=== PATIENT | female | born 1990 | race Caucasian/White ===

== ENCOUNTER 2016-11-14 16:49 | Emergency (ER) | payer OTHER ==
[~2016-11-14] VITALS: Ht 172.7 cm; Wt 65.7 kg
[~2016-11-14 16:49] MED LIST: ASPI-390 PO; RIZA10TA18 PO; SUMA100T16 PO
[2016-11-14 16:53] VITALS: Ht 172.7 cm; Wt 65.7 kg
[2016-11-14] MEDS ORDERED: METOCLOPRAMIDE HCL INJ 5 MG/ML 2 ML VIAL IV STA (18:11)
[2016-11-14] MEDS ORDERED: SODIUM CHLORIDE 0.9% 1000ML 1,000 ML IV STA ×2 (18:11)
[2016-11-14] MEDS ORDERED: DiphenhydrAMINE HCL 50 MG/ML VIAL IV STA (18:11)
[2016-11-14] MEDS ORDERED: NAPR-1169 PO (18:11)
[2016-11-14] MEDS ORDERED: MAGNESIUM SULFATE 1GM / D5W 1 GM BAG IV STA (18:11)
[2016-11-14] MEDS ORDERED: KETOROLAC TROMETHAMINE 30 MG/ML VIAL IV STA (18:11)
--- NOTE | 2016-11-14 18:22 | EMERGENCY ROOM VISIT NOTE ---
History Report prepared by Chris: Juan Mason Under the Supervision of: Dr. Acosta Xiao M.D. First contact with patient: 17:54 Chief Complaint: GI ASSESSMENT Stated Complaint: VOMITING, MIGRAINE, CRAMPS, BLACK STOOL Nursing Triage Summary: vomiting since this am, c/o migraine, states she had cold symptoms on friday, pt c/o diarrhea and black stool History of Present Illness The patient is a 26 year old wf with a PMHx of migraines who presents to the ED with a cc of constant headache beginning this morning. She reports that her headache is worsened with light. She describes her headache as "pounding" and reports that it radiates to her face. She states that her headache now is worse than her typical migraines. The patient admits to having a cold symptoms six days ago. The patient admits to taking Robitussin for her symptoms and admits that her cold symptoms are relieved. She also c/o diarrhea and dark stool, which her mother believes is due to a GI infection. 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 The patient admits to an allergy of Codeine, which she reports she becomes nauseous from. Positive vomiting, sinus congestion, throat pain, diarrhea, black stool. Negative falls, productive cough, ear pain, surgeries, alcohol use, tobacco use , UTI/ kidney stone history, pancreatitis, and liver problems. Source of History: patient Onset: this morning Position: head Associated Symptoms: + sorethroat, + vomiting, + diarrhea Review of Systems See HPI for pertinent positives and negatives. A total of ten systems were reviewed and were otherwise negative. Past Medical & Surgical Medical Problems: (1) Migraine Family History No pertinent family history Social History Smoking Status: Never Smoker Alcohol Use: occasionally Marital Status: Housing Status: lives with family Current/Historical Medications Scheduled Famotidine (Pepcid), 20 MG PO QD Ondasetron Odt (Zofran Odt), 4 MG SL Q6H Sumatriptan Succinate (Imitrex), 100 MG PO PRN Scheduled PRN Pglhwxf-Fnzcvjazktndw-Zpkulwru (Excedrin Migraine), 1-2 TAB PO DIRECTED PRN for Headache Naproxen (Naprosyn), 500 MG PO DAILY PRN for Pain Allergies Coded Allergies: Codeine (Verified Allergy, Unknown, vomits, 11/14/16) Physical Exam Vital Signs Date Time Temp Pulse Resp B/P (MAP) Pulse Ox O2 Delivery O2 Flow Rate FiO2 11/14/16 21:08 36.9 92 16 103/72 100 11/14/16 20:07 70 16 100 11/14/16 20:01 119/70 11/14/16 19:37 66 16 100 11/14/16 19:32 65 15 100 11/14/16 19:31 110/69 11/14/16 19:19 64 16 100 11/14/16 19:05 126/77 11/14/16 18:59 93 11/14/16 16:53 36.9 78 18 123/84 98 Room Air Physical Exam GENERAL: Awake, alert, well-appearing, NAD HENT: Normocephalic, atraumatic. EYES: Normal conjunctiva. Sclera non-icteric. NECK: Supple. No nuchal rigidity. FROM. RESPIRATORY: CTAB, no rhonchi, wheezing, crackles CARDIAC: RRR, no MRG ABDOMEN: Soft, epigastric tenderness, no lower abdominal tenderness, BS+ MSK: No chest wall TTP, no LE edema NEURO: GCS 15, CN 2-12 intact, moves all 4s on command, no dysarthria. Good finger to nose. No pronator drift. Symmetric strength in bilateral UE/LE. SKIN: No signs of bruising or petechiae. Medical Decision & Procedures Laboratory Results 11/14/16 18:16 Red Blood Count 4.02, Mean Corpuscular Volume 86.6, Mean Corpuscular Hemoglobin 27.1, Mean Corpuscular Hemoglobin Concent 31.3, Mean Platelet Volume 10.3, Neutrophils (%) (Auto) 77.5, Lymphocytes (%) (Auto) 16.0, Monocytes (%) (Auto) 5.7, Eosinophils (%) (Auto) 0.4, Basophils (%) (Auto) 0.2, Neutrophils # (Auto) 6.44, Lymphocytes # (Auto) 1.33, Monocytes # (Auto) 0.47, Eosinophils # (Auto) 0.03, Basophils # (Auto) 0.02 11/14/16 18:16 Test 11/14/16 17:59 11/14/16 18:16 Urine Color YELLOW Urine Appearance CLEAR (CLEAR) Urine pH 8.5 (4.5-7.5) Urine Specific [place] 1.022 (1.000-1.030) Urine Protein NEG (NEG) Urine Glucose (UA) NEG (NEG) Urine Ketones TRACE (NEG) Urine Occult Blood 1+ (NEG) Urine Nitrite NEG (NEG) Urine Bilirubin NEG (NEG) Urine Urobilinogen NEG (NEG) Urine Leukocyte Esterase NEG (NEG) Urine WBC (Auto) 0 /hpf (0-5) Urine RBC (Auto) 0-4 /hpf (0-4) Urine Hyaline Casts (Auto) 1-5 /lpf (0-5) Urine Epithelial Cells (Auto) 20-30 /lpf (0-5) Urine Bacteria (Auto) NEG (NEG) Urine Test NEG (NEG) White Blood Count 8.31 K/uL (4.8-10.8) Red Blood Count 4.02 M/uL (4.2-5.4) Hemoglobin 10.9 g/dL (12.0-16.0) Hematocrit 34.8 % (37-47) Mean Corpuscular Volume 86.6 fL (80-100) Mean Corpuscular Hemoglobin 27.1 pg (25-34) Mean Corpuscular Hemoglobin Concent 31.3 g/dl (32-36) Platelet Count 257 K/uL (130-400) Mean Platelet Volume 10.3 fL (7.4-10.4) Neutrophils (%) (Auto) 77.5 % Lymphocytes (%) (Auto) 16.0 % Monocytes (%) (Auto) 5.7 % Eosinophils (%) (Auto) 0.4 % Basophils (%) (Auto) 0.2 % Neutrophils # (Auto) 6.44 K/uL (1.4-6.5) Lymphocytes # (Auto) 1.33 K/uL (1.2-3.4) Monocytes # (Auto) 0.47 K/uL (0.11-0.59) Eosinophils # (Auto) 0.03 K/uL (0-0.5) Basophils # (Auto) 0.02 K/uL (0-0.2) RDW Standard Deviation 41.9 fL (36.4-46.3) RDW Coefficient of Variation 13.2 % (11.5-14.5) Immature Granulocyte % (Auto) 0.2 % Immature Granulocyte # (Auto) 0.02 K/uL (0.00-0.02) Prothrombin Time 11.5 SECONDS (9.0-12.0) Prothromb Time International Ratio 1.1 (0.9-1.1) Activated Partial Thromboplast Time 29.3 SECONDS (21.0-31.0) Partial Thromboplastin Ratio 1.1 Anion Gap 7.0 mmol/L (3-11) Est Creatinine Clear Calc Drug Dose 113.6 ml/min Estimated GFR () 126.6 Estimated GFR (Non- 109.2 BUN/Creatinine Ratio 14.9 (10-20) Calcium Level 9.3 mg/dl (8.5-10.1) Total Bilirubin 0.6 mg/dl (0.2-1) Direct Bilirubin 0.1 mg/dl (0-0.2) Aspartate Amino Transf (AST/SGOT) 15 U/L (15-37) Alanine Aminotransferase (ALT/SGPT) 16 U/L (12-78) Alkaline Phosphatase 46 U/L (45-117) Total Protein 7.6 gm/dl (6.4-8.2) Albumin 4.2 gm/dl (3.4-5.0) Lipase 98 U/L (73-393) Laboratory results reviewed by me Medications Administered Medications (Trade) Dose Ordered Sig/Kimberley Route Start Time Stop Time Status Last Admin Dose Admin Sodium Chloride 1,000 ml @ 999 mls/hr Q1H1M STAT IV 11/14/16 18:11 11/14/16 19:11 DC 11/14/16 18:54 999 MLS/HR Ketorolac Tromethamine (Toradol Inj) 30 mg NOW STAT IV 11/14/16 18:11 11/14/16 18:13 DC 11/14/16 18:55 30 MG Sodium Chloride 1,000 ml @ 999 mls/hr Q1H1M STAT IV 11/14/16 18:11 11/14/16 19:11 DC 11/14/16 18:11 999 MLS/HR Metoclopramide HCl (Reglan Inj) 10 mg NOW STAT IV 11/14/16 18:11 11/14/16 18:13 DC 11/14/16 18:54 10 MG Magnesium Sulfate (Magnesium Sulfate) 1 gm NOW STAT IV 11/14/16 18:11 11/14/16 18:13 DC 11/14/16 18:55 1 GM Diphenhydramine HCl (Benadryl Inj) 50 mg NOW STAT IV 11/14/16 18:11 11/14/16 18:13 DC 11/14/16 18:54 50 MG ECG Indication: vomiting Rate (beats per minute): 74 Rhythm: normal sinus Findings: other (Normal axis and intervals. No ST changes or TWI) ED Course 1758: The patient was evaluated in room C08. A complete history and physical exam was performed. 1940: I reevaluated the patient and she is feeling better. I discussed her results and treatment plan. She agrees to the plan. The patient is ready for discharge. Medical Decision Etiologies such as migraine headache, meningitis, sinusitis, CO exposure, ICH, SAH, infection, tumor, headache, sinus thrombosis, arterial dissection, gastroenteritis, food borne illness, infections, appendicitis, diverticulitis, inflammatory bowel disease, obstruction, GI bleed, biliary pathology, as well as others were entertained. Patient was seen and evaluated the bedside. Patient did complain of some migraine along with some dark stool. Patient denied any bright red blood per rectum or hematemesis. Patient denied any recent antibiotics. Patient states that the headache was of her typical migraine. Patient did not have any neurologic deficits. Patient was noted to have a negative UA and U [place]. LFTs within normal limits. Patient's hemoglobin had dropped from 12-10.9 in 1 year. MCV was within normal limits. Coag studies were also within normal limits. White count of 8. Given the patient's symptoms resolved with symptomatic treatment. Patient was told to slowly reintroduce items back into her diet that she was able tolerate by mouth bedside. Patient's headache was improved although not resolved. Patient had no focal neurologic deficits to believe this to be ICH or stroke given the lack of focal neuro deficits in a patient that is well-appearing. No signs of meningismus less likely meningitis. Patient's abdominal pain had resolved. Patient was given strict follow-up, discharge, return precautions. Patient [facility] patient was safely discharged home. Medication Reconcilliation Current Medication List: was personally reviewed by me Blood Pressure Screening Patient's blood pressure: Normal blood pressure Impression Primary Impression: Viral gastritis Scribe Attestation The scribe's documentation has been prepared under my direction and personally reviewed by me in its entirety. I confirm that the note above accurately reflects all work, treatment, procedures, and medical decision making performed by me. Departure Information Dispostion Home / Self-Care Prescriptions Famotidine (PEPCID) 20 Mg Tab 20 MG PO QD for 30 Days, #30 TAB Prov: Acosta Xiao M.D. 11/14/16 Ondasetron Odt (ZOFRAN ODT) 4 Mg Tab 4 MG SL Q6H for Nausea, #6 TAB Prov: Acosta Xiao M.D. 11/14/16 Referrals No Doctor, Assigned (PCP) Forms HOME CARE DOCUMENTATION FORM, IMPORTANT VISIT INFORMATION Patient Instructions ED PUD Vs Gastritis, My [facility] Additional Instructions Please return to the emergency department if you have worsening or recurrent symptoms not amenable to at-home treatment. Please call for a follow-up appointment with her primary care physician. Please take your medications as prescribed. If you have other concerns and/or complaints please feel free to also call your primary care physician's office or return the ED for further evaluation, management, and treatment. You may take tylenol 1000mg every 6 hours as needed for pain. Avoid NSAIDs like motrin/ibuprofen as this may cause upset stomach. You have been examined and treated today on an emergency basis only. This is not a substitute for, or an effort to provide, complete comprehensive medical care. It is impossible to recognize and treat all injuries or illnesses in a single emergency department visit. It is therefore important that you follow up closely with [facility]. Call as soon as possible for an appointment. Thank you for your time and consideration. I look forward to speaking with you again soon. Please don't hesitate to call us if you have any questions. Work Instructions Return To Work: 1 day
[2016-11-14 18:33] LABS: URINE APPEARANCE CLEAR (CLEAR); URINE BILIRUBIN NEG (NEG); URINE COLOR YELLOW; URINE EPITHELIAL CELL AUTO 20-30 /lpf (0-5); URINE NITRITE NEG (NEG); URINE PH 8.5 (4.5-7.5); URINE SPECIFIC GRAVITY 1.022 (1.000-1.030); UROBILINOGEN NEG (NEG); ZZUR CULT IF INDIC CLEAN CATCH NO
[2016-11-14 18:36] LABS: BASO % 0.2 %; BASO ABS # 0.02 K/uL (0-0.2); COMPLETE YES; EOS % 0.4 %; HEMATOCRIT 34.8 % (37-47); IG% 0.2 %; LYMPH ABS # 1.33 K/uL (1.2-3.4); MEAN CELL VOLUME 86.6 fL (80-100); MEAN CORPUSCULAR HEMOGLOBIN 27.1 pg (25-34); MEAN CORPUSCULAR HGB CONC 31.3 g/dl (32-36); MEAN PLATELET VOLUME 10.3 fL (7.4-10.4); MONO % 5.7 %; NEUT % 77.5 %; PLATELET COUNT 257 K/uL (130-400); RED BLOOD COUNT 4.02 M/uL (4.2-5.4); WHITE BLOOD COUNT 8.31 K/uL (4.8-10.8)
[2016-11-14 18:36] LABS: MANUAL MICROSCOPIC REQUIRED? NO; REVIEW REQ? NO
[2016-11-14 18:44] LABS: BUN/CREATININE RATIO 14.9 (10-20); CALCIUM 9.3 mg/dl (8.5-10.1); CREATININE 0.75 mg/dl (0.60-1.20); POTASSIUM 3.7 mmol/L (3.5-5.1)
[2016-11-14 18:49] LABS: INR 1.1 (0.9-1.1); PARTIAL THROMBOPLASTIN RATIO 1.1; PROTHROMBIN TIME (PATIENT) 11.5 SECONDS (9.0-12.0)
[2016-11-14] MEDS ORDERED: ONDA4TAB10 SL (20:37)
[2016-11-14] MEDS ORDERED: FAMO20TA9 PO (20:37)
[2016-11-14 21:08] VITALS: BP 103/72; PULSE 92; TEMP 36.9; O2SAT 100
== END 2016-11-14 21:03 | disposition home or self-care (01) ==
LOC: C.EDB 16:50 → C.EDC 21:03
DX: A08.4 Viral intestinal infection, unspecified (principal); Z79.899 Other long term (current) drug therapy

== ENCOUNTER 2023-07-25 03:13 | Inpatient (IN) ==
--- NOTE | 2023-07-25 03:28 | Emergency Department Note ---
Impression & Plan Left-sided weakness, Joint pain, Rash and nonspecific skin eruption ED Provider Note CHIEF COMPLAINT: Left arm numbness and pain HISTORY OF PRESENTING ILLNESS: This 33-year-old female patient presents to the emergency department with her for evaluation of pain and numbness to the left arm that radiates to the left chest. Having trouble moving her left arm and left leg as well. Symptoms started at 1 AM. Pain is worse with movement of the arm. Denies any headache. Denies any facial droop. Denies any changes in her speech. Has been having a lot of joint pain over the past 2 days. Feels like she has trouble walking because of the joint pain in the left leg. Having trouble holding onto things with the left arm because of the pain and weakness. She is not on any blood thinners. No personal or family history of stroke. Denies tobacco use. Not on any hormonal medications or OCPs. She rates his discomfort as 9/10. She also started with a rash on 07/19/2023 and was diagnosed with spxh-lhxe-izn-mouth disease. However, the rash seems to be getting worse. The patient states that her PCP tested her for chickenpox and measles as well. The rash started on the back of the upper left leg. The rash then spread to her left arm and then diffusely spread all over. The rash itches and sinclair. The pain is mostly at the site of her joints. No known tick bites, but she has been in the bose recently. She went to [place] in April and developed a red rash, vomiting, diarrhea, headache, fever, and joint pains at the end of the [place] trip and was diagnosed with Influenza A when she came back home. The rash resolved after 4 days. Did not have a rash or joint pain again until 2 days ago. Did not start with swelling until 2 days ago. The patient was also seen in the ER on 07/23/2023. Blood work on 07/23/2023 within normal CBC, normal CMP, 1+ ketones in the urine, but no UTI, negative urine test, negative Lyme disease screen, and negative respiratory bio fire. Chest x-ray on 07/23/2023 was negative as well. She was given a dose of steroids in the ER and discharged home with topical steroids, but no oral steroids. The topical steroids do not seem to be helping. REVIEW OF SYSTEMS: See HPI for pertinent positives and pertinent negatives. ALLERGIES: Codeine MEDICATIONS: Zolmitriptan, zofran prn PAST MEDICAL HISTORY: Migraine PHYSICAL EXAM: VITALS: Vitals are noted on the nurse's note and reviewed by myself. GENERAL: No acute distress, non-diaphoretic. SKIN: The patient has a diffuse erythematous and blanching rash diffusely over her body. Some of the lesions appear slightly vesicular while some are papular and some are macular. The patient has some possible petechia around the ankles, but no obvious purpura. No pustules, pointing, or discharge. No lymphatic streaking. The rash appears more localized to the distal part of the extremities and around the joints and more sparse proximally. Capillary reflex less than 2 seconds. HEAD: No scalp tenderness. No step-offs felt. EARS: Bilateral external auditory canals clear. Bilateral tympanic membranes pearly loredo without erythema or effusion. No hemotympanum. No moody sign. No mastoid tenderness. EYES: Pupils equal round and reactive to light and accommodation. Conjunctivae without injection, sclerae without icterus. Extraocular movements intact without pain. NOSE: Patent, turbinates without inflammation or discharge. No sinus tenderness. No septal hematoma or bleeding. FACE: No facial bone tenderness. Full range of motion of the jaw without tenderness. No facial droop. MOUTH: Mucous membranes moist. Uvula midline. Airway patent. Tongue does not deviate. NECK: Supple without nuchal rigidity. Cervical spine is nontender. Full range of motion of the neck without tenderness and normal strength. HEART: Regular rate and rhythm without murmurs gallops or rubs. LUNGS: Clear to auscultation bilaterally without wheezes, rales or rhonchi. No retractions or accessory muscle use. No chest wall tenderness. ABDOMEN: Positive bowel sounds x 4. Normal tympanic percussion. Soft, nontender, without masses or organomegaly. No guarding or rebound tenderness. MUSCULOSKELETAL: No tenderness of the thoracic or lumbar spine or paraspinal muscles. The patient's left arm and clothing examiner with 3/5 strength compared to 5/5 in the right. Left leg 4/5 strength compared to 5/5 in the right. However, the patient is unsure if this is secondary to true weakness or secondary to pain. NEURO: Patient was alert and oriented to person place and time. Normal mental status exam. Slightly decreased sensation to light touch to the left upper extremity compared to the right. Normal sensation to light and sharp touch otherwise. No pronator drift, but she does have trouble keeping the left arm elevated due to pain. DIFFERENTIAL DIAGNOSIS: Differential diagnosis includes CVA, TIA, Hylton's palsy, Lyme disease, anaplasmosis, babesiosis, ehrlichiosis, [place] spotted fever, ulpw-cvio-ygu-mouth, shingles, measles, chickenpox, allergic reaction, cellulitis, DVT, SVT, PE, pneumonia, NC, myocarditis, pericarditis, cervical disc disease, cervical radiculopathy, lumbar spine disc disease, lumbar radiculopathy, or others. ED COURSE AND MEDICAL DECISION MAKING: HISTORY FROM INDEPENDENT HISTORIAN: Additional history was obtained from the patient's . MONITOR: Continuous registered nurse cardiac: Order was placed for continuous registered nurse cardiac. Patient was placed on the registered nurse cardiac and continuous pulse ox. Patient was noted to be in normal sinus rhythm at an initial rate of 84 bpm per my interpretation. EKG: EKG was interpreted by myself as normal sinus rhythm at 78 bpm with no acute ST or T wave change. MEDICATIONS GIVEN: 1 L normal saline solution bolus. 1000 mg of Tylenol IV. Morphine 4 mg IV, Zofran 4 mg IV, and Toradol 10 mg IV. Decadron 10 mg IV and Pepcid 20 mg IV. INTERPRETATION OF LABS: I interpreted the labs with full lab results as below in the lab section of this note. White blood cell count normal at 7.70. Hemoglobin normal at 12. Platelet count normal at 191. Coags were normal. CMP without significant abnormalities. Magnesium normal. CPK normal. High- sensitivity troponin normal. Serum hCG negative. TSH elevated at 22.679 with a normal free T4 of 0.83. Urinalysis unremarkable. Lyme disease screening negative. Anaplasma and Babesia smear were negative with DNA PCR still pending. Ehrlichiosis, Rickettsia, and other tickborne illness testing still pending. ASO titer still pending. INTERPRETATION OF IMAGING: Chest x-ray interpreted by myself was negative for acute cardiopulmonary etiology. Radiology report still pending. Additional imaging studies were interpreted by myself and read by radiology as per the imaging section of this note. CT scan of the head without contrast as well as CTA of the head and neck with IV contrast were negative for acute abnormalities. EXTERNAL RECORDS REVIEWED: I reviewed the patient's ER visit and workup performed on 07/23/2023 as summarized above. CONSULTATIONS: On-call hospitalist MDM SUMMARY: I examined the patient. The patient started with a rash on 07/19/2023 that was diagnosed with nfgz-ttug-rbx-mouth. She then developed joint pain a couple of days later. This morning at 1 AM she woke up with numbness and tingling as well as some weakness in the left upper extremity. Her last known well was when she went to bed around 11 PM. She feels that the weakness may be more secondary to the pain she is feeling. Also having some pain and weakness of the left lower extremity. No other strokelike symptoms. The patient was independently evaluated by Dr. Hebert, who agrees with my assessment and treatment plan. We do not feel the patient requires a stroke alert at this time, but will have an emergent stroke workup. I reviewed the patient's workup from her ER visit yesterday. An IV lock was placed and labs were drawn. CT scan of the head without contrast as well as CTA of the head and neck with IV contrast were negative for acute abnormalities. The patient was medicated as above with some improvement of her symptoms, but still continued with significant joint pains. Laboratory studies as above without significant abnormalities other than her TSH that was elevated at 22.679. Tickborne illness testing is still pending. ASO titer still pending. The patient does have lesions to her palms and soles as well as a diffuse rash that seems to start distally and spread proximally. She does have some possible petechia around the ankles. While this may be ogpf-dgvm-fad-mouth, it appears much more significant of a rash than typical zaqm-kyqn-nfp-mouth. No obvious evidence for bacterial infection or abscess at this time. Based on the distribution of the patient's rash, there is concern for possible Branson spotted fever or other tickborne illness. The patient also traveled to [place] in April and had a febrile illness with rash at that time. She was diagnosed with influenza when she returned to the [place] after her trip. Due to the patient's extent of symptoms, we recommended admission for further inpatient evaluation and treatment and management of her pain and symptoms. I spoke with the on-call hospitalist who agreed to admit the patient. Please refer to their dictation for further details. The patient's care was transferred in stable condition. DIAGNOSIS: Left-sided weakness Joint pains Rash Past Med/Surg History Problem List (Updated 07/25/23 @ 21:21 by Ruth Suárez PA-C) Rash and nonspecific skin eruption (Acute) Joint pain (Acute) Generalized weakness Left-sided weakness (Acute) Hand, foot and mouth disease (Acute) Migraine (Acute) Migraine (Chronic) Dehydration (Acute) Nausea vomiting and diarrhea (Acute) Pleuritic chest pain (Acute) Surgical History No pertinent past surgical history Family History Other Family history non-contributory Social History Smoking Status: Never smoker Tobacco Type: Cigarettes Hx Alcohol Use: No Hx Substance Use: No Preferred Language: Croatian Communication Ability: Effective Fish Processor Required: No Beliefs That Will Affect Care: None marital status: Current Living Situation: Spouse current occupational status: employed Other Information That Helps Us Care for You: No Feels Safe at Home: Yes Safety Concerns: Feels Safe At This Time Allergies Allergies Allergy/AdvReac Type Severity Reaction Status Date / Time codeine AdvReac Intermediate vomits Verified 09/20/22 22:17 Home Meds Home Medications Medication Instructions Recorded Confirmed ondansetron HCl 4 mg tablet 4 mg PO Q6H PRN Nausea 09/20/22 07/25/23 vitamin B complex 1 tab PO DAILY 09/20/22 07/25/23 zolmitriptan 5 mg disintegrating 5 mg translingual DIRECTED PRN 09/20/22 07/25/23 tablet Migraine Headache iron,carbonyl 65 mg-vitamin C 125 1 tab PO DAILY 09/21/22 07/25/23 mg tablet,delayed release (Vitron-C) Results & Data (ED) Vital Signs Vital Signs - 24 hr 07/25/23 03:13 07/25/23 03:17 07/25/23 03:36 Temperature 36.5 C Temperature Source Oral Pulse Rate 86 81 Pulse Rate [Apical] 78 Pulse Rate from SpO2 Sensor 80 Pulse Rhythm [Apical] Regular Pulse Strength [Apical] Normal Respiratory Rate 12 18 10 L Respiratory Effort / Characteristics Non-Labored Non-Labored Spontaneous Respiratory Depth Normal Normal Respiratory Pattern Regular Blood Pressure 131/82 Blood Pressure [Right Arm] 116/80 Blood Pressure Mean 98 Blood Pressure Mean [Right Arm] 92 Pulse Oximetry 100 99 100 Oxygen Delivery Method Room Air Room Air Sepsis Recent Fever Within 48 Hours No Sepsis New/Unexplained Change in Mental Status N/A Sepsis Action Taken by Nursing No Action Required 07/25/23 03:40 07/25/23 03:40 07/25/23 04:00 Temperature Temperature Source Pulse Rate 78 88 Pulse Rate [Apical] Pulse Rate from SpO2 Sensor 88 Pulse Rhythm [Apical] Pulse Strength [Apical] Respiratory Rate 12 19 Respiratory Effort / Characteristics Respiratory Depth Respiratory Pattern Blood Pressure 122/93 Blood Pressure [Right Arm] Blood Pressure Mean 109 Blood Pressure Mean [Right Arm] Pulse Oximetry 100 100 Oxygen Delivery Method Room Air Sepsis Recent Fever Within 48 Hours Sepsis New/Unexplained Change in Mental Status Sepsis Action Taken by Nursing 07/25/23 04:10 07/25/23 04:12 07/25/23 04:20 Temperature Temperature Source Pulse Rate 72 72 75 Pulse Rate [Apical] Pulse Rate from SpO2 Sensor 74 77 Pulse Rhythm [Apical] Pulse Strength [Apical] Respiratory Rate 20 20 Respiratory Effort / Characteristics Respiratory Depth Respiratory Pattern Blood Pressure Blood Pressure [Right Arm] Blood Pressure Mean Blood Pressure Mean [Right Arm] Pulse Oximetry 100 100 Oxygen Delivery Method Sepsis Recent Fever Within 48 Hours Sepsis New/Unexplained Change in Mental Status Sepsis Action Taken by Nursing 07/25/23 04:30 07/25/23 04:40 07/25/23 04:50 Temperature Temperature Source Pulse Rate 78 86 82 Pulse Rate [Apical] Pulse Rate from SpO2 Sensor 80 88 84 Pulse Rhythm [Apical] Pulse Strength [Apical] Respiratory Rate 13 17 17 Respiratory Effort / Characteristics Respiratory Depth Respiratory Pattern Blood Pressure Blood Pressure [Right Arm] Blood Pressure Mean Blood Pressure Mean [Right Arm] Pulse Oximetry 100 100 100 Oxygen Delivery Method Sepsis Recent Fever Within 48 Hours Sepsis New/Unexplained Change in Mental Status Sepsis Action Taken by Nursing 07/25/23 05:00 07/25/23 05:10 07/25/23 07:00 Temperature Temperature Source Pulse Rate 83 77 81 Pulse Rate [Apical] Pulse Rate from SpO2 Sensor 81 75 Pulse Rhythm [Apical] Pulse Strength [Apical] Respiratory Rate 19 17 16 Respiratory Effort / Characteristics Respiratory Depth Respiratory Pattern Blood Pressure 121/77 Blood Pressure [Right Arm] Blood Pressure Mean 91 Blood Pressure Mean [Right Arm] Pulse Oximetry 100 100 98 Oxygen Delivery Method Room Air Sepsis Recent Fever Within 48 Hours Sepsis New/Unexplained Change in Mental Status Sepsis Action Taken by Nursing Laboratory Data 07/25/23 03:45 07/25/23 03:45 Lab Results 07/25/23 07/25/23 Range/Units 03:42 03:45 WBC 7.70 (4.8-10.8) K/ul RBC 4.03 L (4.20-5.40) M/uL Hgb 12.0 (12.0-16.0) g/dl Hct 35.9 L (37.0-47.0) % MCV 89.1 (80.0-100.0) fL MCH 29.8 (25.0-34.0) pg MCHC 33.4 (32.0-36.0) g/dL RDW Std Deviation 40.9 (36.4-46.3) fL RDW Coeff of Eliza 12.6 (11.5-14.5) % Plt Count 191 (130-400) K/uL MPV 10.3 (9.4-12.4) fL Immature Gran % (Auto) 0.3 % Neut % (Auto) 60.5 % Lymph % (Auto) 24.8 % [place] % (Auto) 6.0 % Eos % (Auto) 7.9 % Baso % (Auto) 0.5 % Neut # (Auto) 4.66 (1.40-6.50) K/uL Lymph # (Auto) 1.91 (1.20-3.40) K/uL [place] # (Auto) 0.46 (0.11-0.59) K/uL Eos # (Auto) 0.61 H (0.00-0.50) K/uL Baso # (Auto) 0.04 (0.00-0.20) K/uL Immature Gran # (Auto) 0.02 (0.01-0.20) K/uL ESR 13 (0-20) mm/hr PT 11.2 (9.0-12.0) Seconds INR 1.0 (0.9-1.1) APTT 30 (21-31) Seconds PTT Ratio 1.1 Sodium 137 (136-145) mmol/L Potassium 3.8 (3.5-5.1) mmol/L Chloride 104 (98-107) mmol/L Carbon Dioxide 24 (21-32) mmol/L Anion Gap 9 (3-11) BUN 22 (6-23) mg/dl Creatinine 1.09 D (0.6-1.2) mg/dl Est Cr Clr Drug Dosing 76.0 ml/min Est GFR ( Amer) 76.7 ml/min Est GFR (Non-Af Amer) 66.2 ml/min BUN/Creatinine Ratio 20.2 H (10-20) Glucose 88 (70-99(Fasting)) mg/dl POC Glucose 95 (70-99) mg/dl Calcium 9.0 (8.6-10.3) mg/dl Magnesium 2.0 (1.7-2.4) mg/dl Total Bilirubin 0.4 (0.2-1.0) mg/dl AST 13 (13-39) U/L ALT 11 (7-52) U/L Alkaline Phosphatase 46 (34-104) U/L Total Creatine Kinase 45 (26-192) U/L Troponin I High Sens 2.6 (0-14) pg/ml C-Reactive Protein < 0.50 (0-0.5) mg/dl Total Protein 7.3 (6.0-8.3) gm/dl Albumin 4.5 (3.4-5.0) gm/dl Globulin 2.8 (2.5-4.0) gm/dl Albumin/Globulin Ratio 1.6 (0.9-2) TSH 22.679 H (0.300-4.500) uIu/ml Free T4 0.83 (0.61-1.60) ng/dl HCG, Qual Negative (Negative) Anaplasma Smear See Comment Babesia Smear See Comment Lyme Disease Screen Negative (Negative) Administered Medications Doxycycline Hyclate (Doxycycline Hyclate 100 Mg Cap) 100 mg PO BID [facility] Stop: 08/01/23 20:59 Last Admin: 07/25/23 20:34 Dose: 100 mg Documented By: EFK Enoxaparin Sodium (Enoxaparin Inj 40 Mg/0.4 Ml Syr) 40 mg SQ QAM MARCELLA Stop: 08/24/23 08:59 Last Admin: 07/25/23 11:25 Dose: Not Given Documented By: MARK Ferrous Sulfate (Ferrous Sulfate 325 Mg Tab) 325 mg PO DAILY MARCELLA; Protocol Stop: 08/24/23 11:44 Last Admin: 07/25/23 13:34 Dose: 325 mg Documented By: MARK Oxycodone HCl (Oxycodone Hcl Ir 5 Mg Tab (Immediate Release)) 5 mg PO Q4H PRN PRN Reason: Pain Stop: 08/08/23 07:28 Last Admin: 07/25/23 09:38 Dose: 5 mg Documented By: MARK Vitamin B Complex (Vitamin B Complex Tab) 1 tab PO DAILY MARCELLA Stop: 08/24/23 11:29 Last Admin: 07/25/23 13:34 Dose: 1 tab Documented By: MARK Discontinued Medications Aspirin (Aspirin 81 Mg Chew) 324 mg PO NOW STA Stop: 07/25/23 07:20 Last Admin: 07/25/23 07:27 Dose: 324 mg Documented By: MARK Dexamethasone Sodium Phosphate (DexamethasonePf 10 Mg/Ml Vial) 10 mg IV NOW ONE Stop: 07/25/23 04:46 Last Admin: 07/25/23 05:09 Dose: 10 mg Documented By: HANNAH Gadobutrol (Gadobutrol 65ml Vial) 7.6 ml IV ONCE ONE Stop: 07/25/23 12:28 Last Admin: 07/25/23 12:23 Dose: 7.6 ml Documented By: EMMANUEL Sodium Chloride (Nss) 1,000 mls @ 999 mls/hr IV .Q1H1M STA Stop: 07/25/23 04:40 Last Infusion: 07/25/23 05:11 Dose: Infused Documented By: Admin: 07/25/23 04:29 Dose: 999 mls/hr Documented By: HANNAH Acetaminophen (Ofirmev) 1,000 mg in 100 mls @ 400 mls/hr IV NOW STA Stop: 07/25/23 04:00 Last Infusion: 07/25/23 05:11 Dose: Infused Documented By: Admin: 07/25/23 04:29 Dose: 400 mls/hr Documented By: HANNAH Famotidine (Pepcid 20mg Iv Push) 20 mg in 5 mls @ 2.5 mls/min IV NOW STA Stop: 07/25/23 04:48 Last Admin: 07/25/23 05:10 Dose: 2.5 mls/min Documented By: HANNAH Potassium Chloride/Sodium Chloride (Normal Saline W/20 Meq Kcl) 20 meq in 1,000 mls @ 100 mls/hr IV .Q10H STA; Protocol Stop: 07/25/23 15:56 Last Infusion: 07/25/23 18:25 Dose: Infused Documented By: Admin: 07/25/23 07:21 Dose: 100 mls/hr Documented By: MARK Doxycycline Hyclate 100 mg/ (Dextrose) 100 mls @ 50 mls/hr IV NOW STA Stop: 07/25/23 08:06 Last Infusion: 07/25/23 09:23 Dose: Infused Documented By: Admin: 07/25/23 07:23 Dose: 50 mls/hr Documented By: MARK Ioversol (Optiray 320 125ml) 125 ml IV ONCE ONE Stop: 07/25/23 04:05 Last Admin: 07/25/23 04:05 Dose: 117 ml Documented By: ASHUTOSH Ketorolac Tromethamine (Ketorolac Tromethamine 15 Mg/Ml Vial) 10 mg IV NOW ONE Stop: 07/25/23 04:46 Last Admin: 07/25/23 05:10 Dose: 10 mg Documented By: HANNAH Loratadine (Loratadine 10 Mg Tab) 10 mg PO NOW ONE Stop: 07/25/23 07:30 Last Admin: 07/25/23 08:59 Dose: 10 mg Documented By: MARK Morphine Sulfate (Morphine Sulfate 4 Mg/Ml 1 Ml Carp\Vial) 4 mg IV NOW STA Stop: 07/25/23 04:45 Last Admin: 07/25/23 05:09 Dose: 4 mg Documented By: HANNAH Ondansetron HCl (Ondansetron Inj 2 Mg/Ml 2 Ml Vial) 4 mg IV NOW STA Stop: 07/25/23 04:45 Last Admin: 07/25/23 05:09 Dose: 4 mg Documented By: HANNAH Imaging Data Radiologist's Impression: Head CT 07/25/23 03:40 CR Exam(s): CT HEAD Without Contrast EXAM: CT Head Without Intravenous Contrast CLINICAL HISTORY: Reason for exam: Weakness of left leg and arm, paresthesias. TECHNIQUE: Axial computed tomography images of the head/brain without intravenous contrast. CTDI is 37.32 mGy and DLP is 624.41 mGy-cm. Automated exposure control was utilized for the study. A dose lowering technique was utilized adhering to the principles of ALARA. COMPARISON: 09/21/2072 FINDINGS: Brain: Unremarkable. No hemorrhage. No significant white matter disease. No edema. Ventricles: Unremarkable. No ventriculomegaly. Bones/joints: Unremarkable. No acute fracture. Soft tissues: Unremarkable. Sinuses: Unremarkable as visualized. No acute sinusitis. Mastoid air cells: Unremarkable as visualized. No mastoid effusion. IMPRESSION: Normal head/brain CT. Communications: Call Doctor Stroke Electronically signed by: Miguel Angel Maza MD 07/25/23 04:22 AM Head CTA 07/25/23 03:40 CR Exam(s): CTA HEAD With Contrast IV Amt: 117 ML OPTIRAY 320 EXAM: CT Angiography Head With Intravenous Contrast CLINICAL HISTORY: Reason for exam: Weakness of left leg and arm, paresthesias. TECHNIQUE: Axial computed tomographic angiography images of the head with intravenous contrast. CTDI is 11.75 mGy and DLP is 458.74 mGy-cm. Automated exposure control was utilized for the study. A dose lowering technique was utilized adhering to the principles of ALARA. MIP reconstructed images were created and reviewed. CONTRAST: Patient received 117 ML OPTIRAY 320 of IV contrast COMPARISON: No relevant prior studies available. FINDINGS: Right internal carotid artery: No acute findings. Intracranial segment is patent with no significant stenosis. No aneurysm. Right anterior cerebral artery: Unremarkable. No occlusion or significant stenosis. No aneurysm. Right middle cerebral artery: Unremarkable. No occlusion or significant stenosis. No aneurysm. Right posterior cerebral artery: Unremarkable. No occlusion or significant stenosis. No aneurysm. Right vertebral artery: Unremarkable as visualized. Left internal carotid artery: No acute findings. Intracranial segment is patent with no significant stenosis. No aneurysm. Left anterior cerebral artery: Unremarkable. No occlusion or significant stenosis. No aneurysm. Left middle cerebral artery: Unremarkable. No occlusion or significant stenosis. No aneurysm. Left posterior cerebral artery: Unremarkable. No occlusion or significant stenosis. No aneurysm. Left vertebral artery: Unremarkable as visualized. Basilar artery: Unremarkable. No occlusion or significant stenosis. No aneurysm. IMPRESSION: Normal head CTA. Communications: Call Doctor Stroke Electronically signed by: Miguel Angel Maza MD 07/25/23 04:23 AM Neck CTA 07/25/23 03:40 CR Exam(s): CTA NECK With Contrast IV Amt: 117 ML OPTIRAY 320 EXAM: CT Angiography Neck With Intravenous Contrast CLINICAL HISTORY: Reason for exam: Weakness of left leg and arm, paresthesias. TECHNIQUE: Routine carotid CT angiography protocol was performed with intravenous contrast. NASCET criteria using the distal ICAs for comparison were used for evaluation of stenoses. CTDI is 11.75 mGy and DLP is 458.74 mGy-cm. Automated exposure control was utilized for the study. A dose lowering technique was utilized adhering to the principles of ALARA. MIP reconstructed images were created and reviewed. 3D reconstructed images made available for CONTRAST: Patient received 117 ML OPTIRAY 320 of IV contrast COMPARISON: None. FINDINGS: VASCULATURE: Right common carotid artery: Unremarkable. No occlusion or significant stenosis. No dissection. Right internal carotid artery: Unremarkable. Extracranial segment is patent with no occlusion or significant stenosis. No dissection. Right external carotid artery: Unremarkable. No occlusion. Right vertebral artery: Unremarkable. No occlusion or significant stenosis. No dissection. Left common carotid artery: Unremarkable. No occlusion or significant stenosis. No dissection. Left internal carotid artery: Unremarkable. Extracranial segment is patent with no occlusion or significant stenosis. No dissection. Left external carotid artery: Unremarkable. No occlusion. Left vertebral artery: Unremarkable. No occlusion or significant stenosis. No dissection. NECK: Bones/joints: Unremarkable. No acute fracture. Soft tissues: Unremarkable. Lung apices: Clear. CAROTID STENOSIS REFERENCE USING NASCET CRITERIA: % ICA stenosis = (1 - narrowest ICA diameter/diameter of distal cervical ICA) x 100. Mild - <50% stenosis. Moderate - 50-69% stenosis. Severe - 70-94% stenosis. Near occlusion - 95-99% stenosis. Occluded - 100% stenosis. IMPRESSION: Negative CTA neck. Communications: Call Doctor Stroke Electronically signed by: Miguel Angel Maza MD 07/25/23 04:25 AM Discharge Plan Visit Data Chief Complaint: Arm Pain ED Provider: Adilia Hebert ED Midlevel Provider: Ruth Suárez Discharge Problem: Left-sided weakness, Joint pain, Rash and nonspecific skin eruption Patient Disposition: Admitted As Inpatient Condition: Good Discharge Instructions Interventions: ED Discharge Assessment Last Done: 07/25/23 14:35 Discharge Problem: Joint pain Qualifiers: Joint pain location: unspecified Qualified Code(s): M25.50 - Pain in unspecified joint
[2023-07-25 04:03] LABS: Basophils # (auto) 0.04 K/uL (0.00-0.20); Basophils % (auto) 0.5 %; Eosinophils # (auto) 0.61 K/uL (0.00-0.50); Eosinophils % (auto) 7.9 %; Hematocrit (blood only) 35.9 % (37.0-47.0); Immature Granulocytes # (auto) 0.02 K/uL (0.01-0.20); Immature Granulocytes % (auto) 0.3 %; Lymphocytes # (auto) 1.91 K/uL (1.20-3.40); Lymphocytes % (auto) 24.8 %; Mean Corpuscular Hemoglobin 29.8 pg (25.0-34.0); Mean Corpuscular Hgb Conc 33.4 g/dL (32.0-36.0); Mean Corpuscular Volume 89.1 fL (80.0-100.0); Mean Platelet Volume 10.3 fL (9.4-12.4); Monocytes # (auto) 0.46 K/uL (0.11-0.59); Neutrophils # (auto) 4.66 K/uL (1.40-6.50); Neutrophils % (auto) 60.5 %; Platelet Count 191 K/uL (130-400); RDW Coefficient of Variation 12.6 % (11.5-14.5); RDW Standard Deviation 40.9 fL (36.4-46.3); Red Blood Count 4.03 M/uL (4.20-5.40)
[2023-07-25] MEDS: OPTIRAY 320 125ml IV ONE (04:05)
[2023-07-25 04:22] LABS: Alanine Aminotransferase 11 U/L (7-52); Albumin Globulin Ratio 1.6 (0.9-2); Albumin Level 4.5 gm/dl (3.4-5.0); Alkaline Phosphatase 46 U/L (34-104); Anion Gap 9 (3-11); Aspartate Aminotransferase 13 U/L (13-39); BUN Creatinine Ratio 20.2 (10-20); Bilirubin,Total 0.4 mg/dl (0.2-1.0); Blood Urea Nitrogen 22 mg/dl (6-23); Carbon Dioxide 24 mmol/L (21-32); Chloride 104 mmol/L (98-107); Est GFR (African American) 76.7 ml/min; Est GFR (Non-African American) 66.2 ml/min; Globulin 2.8 gm/dl (2.5-4.0); Glucose 88 mg/dl (70-99(Fasting)); Potassium 3.8 mmol/L (3.5-5.1); Sodium 137 mmol/L (136-145); Total Protein 7.3 gm/dl (6.0-8.3)
--- NOTE | 2023-07-25 04:23 | CT Scan Report ---
Exam(s): CT HEAD Without Contrast EXAM: CT Head Without Intravenous Contrast CLINICAL HISTORY: Reason for exam: Weakness of left leg and arm, paresthesias. TECHNIQUE: Axial computed tomography images of the head/brain without intravenous contrast. CTDI is 37.32 mGy and DLP is 624.41 mGy-cm. Automated exposure control was utilized for the study. A dose lowering technique was utilized adhering to the principles of ALARA. COMPARISON: 09/21/2072 FINDINGS: Brain: Unremarkable. No hemorrhage. No significant white matter disease. No edema. Ventricles: Unremarkable. No ventriculomegaly. Bones/joints: Unremarkable. No acute fracture. Soft tissues: Unremarkable. Sinuses: Unremarkable as visualized. No acute sinusitis. Mastoid air cells: Unremarkable as visualized. No mastoid effusion. IMPRESSION: Normal head/brain CT. Communications: Call Doctor Stroke Electronically signed by: Miguel Angel Maza MD 07/25/23 04:22 AM
--- NOTE | 2023-07-25 04:24 | CT Scan Report ---
Exam(s): CTA HEAD With Contrast IV Amt: 117 ML OPTIRAY 320 EXAM: CT Angiography Head With Intravenous Contrast CLINICAL HISTORY: Reason for exam: Weakness of left leg and arm, paresthesias. TECHNIQUE: Axial computed tomographic angiography images of the head with intravenous contrast. CTDI is 11.75 mGy and DLP is 458.74 mGy-cm. Automated exposure control was utilized for the study. A dose lowering technique was utilized adhering to the principles of ALARA. MIP reconstructed images were created and reviewed. CONTRAST: Patient received 117 ML OPTIRAY 320 of IV contrast COMPARISON: No relevant prior studies available. FINDINGS: Right internal carotid artery: No acute findings. Intracranial segment is patent with no significant stenosis. No aneurysm. Right anterior cerebral artery: Unremarkable. No occlusion or significant stenosis. No aneurysm. Right middle cerebral artery: Unremarkable. No occlusion or significant stenosis. No aneurysm. Right posterior cerebral artery: Unremarkable. No occlusion or significant stenosis. No aneurysm. Right vertebral artery: Unremarkable as visualized. Left internal carotid artery: No acute findings. Intracranial segment is patent with no significant stenosis. No aneurysm. Left anterior cerebral artery: Unremarkable. No occlusion or significant stenosis. No aneurysm. Left middle cerebral artery: Unremarkable. No occlusion or significant stenosis. No aneurysm. Left posterior cerebral artery: Unremarkable. No occlusion or significant stenosis. No aneurysm. Left vertebral artery: Unremarkable as visualized. Basilar artery: Unremarkable. No occlusion or significant stenosis. No aneurysm. IMPRESSION: Normal head CTA. Communications: Call Doctor Stroke Electronically signed by: Miguel Angel Maza MD 07/25/23 04:23 AM
--- NOTE | 2023-07-25 04:25 | CT Scan Report ---
Exam(s): CTA NECK With Contrast IV Amt: 117 ML OPTIRAY 320 EXAM: CT Angiography Neck With Intravenous Contrast CLINICAL HISTORY: Reason for exam: Weakness of left leg and arm, paresthesias. TECHNIQUE: Routine carotid CT angiography protocol was performed with intravenous contrast. NASCET criteria using the distal ICAs for comparison were used for evaluation of stenoses. CTDI is 11.75 mGy and DLP is 458.74 mGy-cm. Automated exposure control was utilized for the study. A dose lowering technique was utilized adhering to the principles of ALARA. MIP reconstructed images were created and reviewed. 3D reconstructed images made available for CONTRAST: Patient received 117 ML OPTIRAY 320 of IV contrast COMPARISON: None. FINDINGS: VASCULATURE: Right common carotid artery: Unremarkable. No occlusion or significant stenosis. No dissection. Right internal carotid artery: Unremarkable. Extracranial segment is patent with no occlusion or significant stenosis. No dissection. Right external carotid artery: Unremarkable. No occlusion. Right vertebral artery: Unremarkable. No occlusion or significant stenosis. No dissection. Left common carotid artery: Unremarkable. No occlusion or significant stenosis. No dissection. Left internal carotid artery: Unremarkable. Extracranial segment is patent with no occlusion or significant stenosis. No dissection. Left external carotid artery: Unremarkable. No occlusion. Left vertebral artery: Unremarkable. No occlusion or significant stenosis. No dissection. NECK: Bones/joints: Unremarkable. No acute fracture. Soft tissues: Unremarkable. Lung apices: Clear. CAROTID STENOSIS REFERENCE USING NASCET CRITERIA: % ICA stenosis = (1 - narrowest ICA diameter/diameter of distal cervical ICA) x 100. Mild - <50% stenosis. Moderate - 50-69% stenosis. Severe - 70-94% stenosis. Near occlusion - 95-99% stenosis. Occluded - 100% stenosis. IMPRESSION: Negative CTA neck. Communications: Call Doctor Stroke Electronically signed by: Miguel Angel Maza MD 07/25/23 04:25 AM
[2023-07-25 04:28] LABS: Troponin I High Sensitivity 2.6 pg/ml (0-14)
[2023-07-25] MEDS: SODIUM CHLORIDE 0.9% 1,000 ML IV STA (04:29)
[2023-07-25] MEDS: ACETAMINOPHEN 1,000 MG/100 ML VIAL IV STA (04:29)
[2023-07-25 04:30] LABS: Pregnancy Test, Serum Negative (Negative)
[2023-07-25 04:34] LABS: Partial Thromboplastin Ratio 1.1; Partial Thromboplastin Time 30 Seconds (21-31); Prothrombin Time 11.2 Seconds (9.0-12.0)
[2023-07-25 04:37] LABS: Thyroid Stimulating Hormone 22.679 uIu/ml (0.300-4.500)
[2023-07-25] MEDS: dexAMETHasone**PF** 10 MG/ML VIAL IV ONE (05:09)
[2023-07-25] MEDS: ONDANSETRON INJ 2 MG/ML 2 ML VIAL IV STA (05:09)
[2023-07-25] MEDS: MoRPHine SULFATE 4 MG/ML 1 ML CARP\\VIAL IV STA (05:09)
[2023-07-25] MEDS: FAMOTIDINE 20MG IV PUSH 20 MG/5 ML SYR IV STA (05:10)
[2023-07-25] MEDS: KETOROLAC TROMETHAMINE 15 MG/ML VIAL IV ONE (05:10)
--- NOTE | 2023-07-25 07:19 | History & Physical Report ---
Date of Service July 25, 2023 Assessment & Plan (1) Left-sided weakness: Plan: Strokelike symptoms following likely viral exanthematous illness (possible rzmk-fdok-qth-mouth disease) Rule out tickborne infection Subclinical hypothyroidism migraine, patient with with mild headache symptoms different from usual migraine attack anxiety disorder, not on maintenance medications past tobacco abuse OBS Medical telemetry Neurochecks Aspirin for stroke prevention until ischemic stroke ruled out MRI brain, TTE for stroke workup Neurology consult Re: Left-sided weakness Follow-up tickborne panel, Doxycycline 1 dose now Dermatology consult re: worsening maculopapular rash Initiate levothyroxine given markedly elevated TSH level, recheck outpatient TSH next month DVT prophylaxis per Lovenox subcu Full code Text document was generated using [employer] voice recognition software. It may contain grammatical or spelling errors. Kindly contact undersigned for clarification of any documentation item in question. History of Present Illness Chief Complaint: Left-sided weakness Primary Care Provider: YURIY Alvarez History obtained from patient, family, and records. Medical history significant for migraine, anxiety disorder, past tobacco abuse. Patient noted pruritic rash starting from her bottom which later spread to her arms, legs face since last week. Patient was doing a 5K run in the [place] prior to onset of illness. No recollection of recent tick bites. Painful swallowing and bumps in her mouth. Patient seen at PCP's office 3 days ago. Impression was fojh-nyhg-tws-mouth disease. Outpatient varicella and measles done given oral lesions. Supportive management recommended for presumptive viral illness. Patient presented to ER the following day due to worsening symptoms. Steroid course prescribed on discharge. Swallowing problem improved but rash getting worse as per patient. Some gait imbalance noted yesterday. Both legs somewhat weak, left greater than right as per patient. Patient woke up this morning with left arm/leg pain and numbness going to her shoulder and chest. Denies unusual neck or back pain. Mild headache symptoms. No fever, no chills. Patient brought to ER for evaluation. Ceftriaxone and Decadron administered at the ER. 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 Allergy/AdvReac Type Severity Reaction Status Date / Time codeine AdvReac Intermediate vomits Verified 09/20/22 22:17 Home Medications Medication Instructions Recorded Confirmed Type ondansetron HCl 4 mg tablet 4 mg PO Q6H PRN Nausea 09/20/22 07/25/23 History vitamin B complex 1 tab PO DAILY 09/20/22 07/25/23 History zolmitriptan 5 mg disintegrating 5 mg translingual DIRECTED PRN 09/20/22 07/25/23 History tablet Migraine Headache iron,carbonyl 65 mg-vitamin C 125 1 tab PO DAILY 09/21/22 07/25/23 History mg tablet,delayed release (Vitron-C) Past Med/Surg History Problem List (Updated 07/25/23 @ 09:17 by Rafael Workman MD) Left-sided weakness Hand, foot and mouth disease (Acute) Migraine (Acute) Migraine (Chronic) Dehydration (Acute) Nausea vomiting and diarrhea (Acute) Pleuritic chest pain (Acute) Surgical History No pertinent past surgical history Family History Other Family history non-contributory Social History Smoking Status: Never smoker Tobacco Type: Cigarettes Preferred Language: Portuguese marital status: Current Living Situation: Family current occupational status: employed Feels Safe at Home: Yes Review of Systems Review of Systems: As per HPI, all other systems reviewed and negative Physical Exam Physical Exam: GENERAL: uncomfortable, anxious, no respiratory distress SKIN: Normal color, nontender maculopapular rashes affecting the face, abdomen, both upper and lower extremities, warm HEENT: [place] palpebral conjunctivae, no ptosis, dry buccal mucosa, raised lesions on buccal mucosa, no obvious ulcerations NECK : Supple, no tenderness CHEST : CTA, no tenderness HEART : RRR, no obvious murmurs ABDOMEN: Some distention, nontender EXTREMITIES : No LE swelling/tenderness, no other conspicuous deformities noted NEUROLOGIC : Coherent, no facial asymmetry, MMTS RUE 4/5, LUE 3/5, BLE 3/5 (R>L), left pronator drift, gait and stance not assessed Results & Data Results & Data Vital Signs (Past 12 Hours) Vital Signs Temp Pulse Pulse Resp BP BP Pulse Ox 05/31/24 07:00 81 16 121/77 98 07/25/23 05:10 77 17 100 07/25/23 05:00 83 19 100 07/25/23 04:50 82 17 100 07/25/23 04:40 86 17 100 07/25/23 04:30 78 13 100 07/25/23 04:20 75 20 100 07/25/23 04:12 72 07/25/23 04:10 72 20 100 07/25/23 04:00 122/93 07/25/23 03:40 88 19 100 07/25/23 03:40 78 12 100 07/25/23 03:36 81 10 L 100 07/25/23 03:17 36.5 C 86 18 131/82 99 07/25/23 03:13 78 12 116/80 100 O2 Del Method 07/25/23 07:00 Room Air 07/25/23 05:10 07/25/23 05:00 07/25/23 04:50 07/25/23 04:40 07/25/23 04:30 07/25/23 04:20 07/25/23 04:12 07/25/23 04:10 07/25/23 04:00 07/25/23 03:40 07/25/23 03:40 Room Air 07/25/23 03:36 07/25/23 03:17 Room Air 07/25/23 03:13 Room Air Laboratory Results Laboratory Results WBC 7.70 K/ul (4.8-10.8) 07/25/23 03:45 RBC 4.03 M/uL (4.20-5.40) L 07/25/23 03:45 Hgb 12.0 g/dl (12.0-16.0) 07/25/23 03:45 Hct 35.9 % (37.0-47.0) L 07/25/23 03:45 MCV 89.1 fL (80.0-100.0) 07/25/23 03:45 MCH 29.8 pg (25.0-34.0) 07/25/23 03:45 MCHC 33.4 g/dL (32.0-36.0) 07/25/23 03:45 RDW Std Deviation 40.9 fL (36.4-46.3) 07/25/23 03:45 RDW Coeff of Eliza 12.6 % (11.5-14.5) 07/25/23 03:45 Plt Count 191 K/uL (130-400) 07/25/23 03:45 MPV 10.3 fL (9.4-12.4) 07/25/23 03:45 Immature Gran % (Auto) 0.3 % 07/25/23 03:45 Neut % (Auto) 60.5 % 07/25/23 03:45 Lymph % (Auto) 24.8 % 07/25/23 03:45 [place] % (Auto) 6.0 % 07/25/23 03:45 Eos % (Auto) 7.9 % 07/25/23 03:45 Baso % (Auto) 0.5 % 07/25/23 03:45 Neut # (Auto) 4.66 K/uL (1.40-6.50) 07/25/23 03:45 Lymph # (Auto) 1.91 K/uL (1.20-3.40) 07/25/23 03:45 [place] # (Auto) 0.46 K/uL (0.11-0.59) 07/25/23 03:45 Eos # (Auto) 0.61 K/uL (0.00-0.50) H 07/25/23 03:45 Baso # (Auto) 0.04 K/uL (0.00-0.20) 07/25/23 03:45 Immature Gran # (Auto) 0.02 K/uL (0.01-0.20) 07/25/23 03:45 PT 11.2 Seconds (9.0-12.0) 07/25/23 03:45 INR 1.0 (0.9-1.1) 07/25/23 03:45 APTT 30 Seconds (21-31) 07/25/23 03:45 PTT Ratio 1.1 07/25/23 03:45 Sodium 137 mmol/L (136-145) 07/25/23 03:45 Potassium 3.8 mmol/L (3.5-5.1) 07/25/23 03:45 Chloride 104 mmol/L (98-107) 07/25/23 03:45 Carbon Dioxide 24 mmol/L (21-32) 07/25/23 03:45 Anion Gap 9 (3-11) 07/25/23 03:45 BUN 22 mg/dl (6-23) 07/25/23 03:45 Creatinine 1.09 mg/dl (0.6-1.2) D 07/25/23 03:45 Est Cr Clr Drug Dosing 76.0 ml/min 07/25/23 03:45 Est GFR ( Amer) 76.7 ml/min 07/25/23 03:45 Est GFR (Non-Af Amer) 66.2 ml/min 07/25/23 03:45 BUN/Creatinine Ratio 20.2 (10-20) H 07/25/23 03:45 Glucose 88 mg/dl (70-99(Fasting)) 07/25/23 03:45 POC Glucose 95 mg/dl (70-99) 07/25/23 03:42 Calcium 9.0 mg/dl (8.6-10.3) 07/25/23 03:45 Magnesium 2.0 mg/dl (1.7-2.4) 07/25/23 03:45 Total Bilirubin 0.4 mg/dl (0.2-1.0) 07/25/23 03:45 AST 13 U/L (13-39) 07/25/23 03:45 ALT 11 U/L (7-52) 07/25/23 03:45 Alkaline Phosphatase 46 U/L (34-104) 07/25/23 03:45 Troponin I High Sens 2.6 pg/ml (0-14) 07/25/23 03:45 Total Protein 7.3 gm/dl (6.0-8.3) 07/25/23 03:45 Albumin 4.5 gm/dl (3.4-5.0) 07/25/23 03:45 Globulin 2.8 gm/dl (2.5-4.0) 07/25/23 03:45 Albumin/Globulin Ratio 1.6 (0.9-2) 07/25/23 03:45 TSH 22.679 uIu/ml (0.300-4.500) H 07/25/23 03:45 HCG, Qual Negative (Negative) 07/25/23 03:45 Anaplasma Smear See Comment 07/25/23 03:45 Babesia Smear See Comment 07/25/23 03:45 Lyme Disease Screen Negative (Negative) 07/25/23 03:[address] 07/25/23 03:40 CR Exam(s): CT HEAD Without Contrast EXAM: CT Head Without Intravenous Contrast CLINICAL HISTORY: Reason for exam: Weakness of left leg and arm, paresthesias. TECHNIQUE: Axial computed tomography images of the head/brain without intravenous contrast. CTDI is 37.32 mGy and DLP is 624.41 mGy-cm. Automated exposure control was utilized for the study. A dose lowering technique was utilized adhering to the principles of ALARA. COMPARISON: 09/21/2072 FINDINGS: Brain: Unremarkable. No hemorrhage. No significant white matter disease. No edema. Ventricles: Unremarkable. No ventriculomegaly. Bones/joints: Unremarkable. No acute fracture. Soft tissues: Unremarkable. Sinuses: Unremarkable as visualized. No acute sinusitis. Mastoid air cells: Unremarkable as visualized. No mastoid effusion. IMPRESSION: Normal head/brain CT. Communications: Call Doctor Stroke Electronically signed by: Miguel Angel Maza MD 07/25/23 04:22 AM Head CTA 07/25/23 03:40 CR Exam(s): CTA HEAD With Contrast IV Amt: 117 ML OPTIRAY 320 EXAM: CT Angiography Head With Intravenous Contrast CLINICAL HISTORY: Reason for exam: Weakness of left leg and arm, paresthesias. TECHNIQUE: Axial computed tomographic angiography images of the head with intravenous contrast. CTDI is 11.75 mGy and DLP is 458.74 mGy-cm. Automated exposure control was utilized for the study. A dose lowering technique was utilized adhering to the principles of ALARA. MIP reconstructed images were created and reviewed. CONTRAST: Patient received 117 ML OPTIRAY 320 of IV contrast COMPARISON: No relevant prior studies available. FINDINGS: Right internal carotid artery: No acute findings. Intracranial segment is patent with no significant stenosis. No aneurysm. Right anterior cerebral artery: Unremarkable. No occlusion or significant stenosis. No aneurysm. Right middle cerebral artery: Unremarkable. No occlusion or significant stenosis. No aneurysm. Right posterior cerebral artery: Unremarkable. No occlusion or significant stenosis. No aneurysm. Right vertebral artery: Unremarkable as visualized. Left internal carotid artery: No acute findings. Intracranial segment is patent with no significant stenosis. No aneurysm. Left anterior cerebral artery: Unremarkable. No occlusion or significant stenosis. No aneurysm. Left middle cerebral artery: Unremarkable. No occlusion or significant stenosis. No aneurysm. Left posterior cerebral artery: Unremarkable. No occlusion or significant stenosis. No aneurysm. Left vertebral artery: Unremarkable as visualized. Basilar artery: Unremarkable. No occlusion or significant stenosis. No aneurysm. IMPRESSION: Normal head CTA. Communications: Call Doctor Stroke Electronically signed by: Miguel Angel Maza MD 07/25/23 04:23 AM Neck CTA 07/25/23 03:40 CR Exam(s): CTA NECK With Contrast IV Amt: 117 ML OPTIRAY 320 EXAM: CT Angiography Neck With Intravenous Contrast CLINICAL HISTORY: Reason for exam: Weakness of left leg and arm, paresthesias. TECHNIQUE: Routine carotid CT angiography protocol was performed with intravenous contrast. NASCET criteria using the distal ICAs for comparison were used for evaluation of stenoses. CTDI is 11.75 mGy and DLP is 458.74 mGy-cm. Automated exposure control was utilized for the study. A dose lowering technique was utilized adhering to the principles of ALARA. MIP reconstructed images were created and reviewed. 3D reconstructed images made available for CONTRAST: Patient received 117 ML OPTIRAY 320 of IV contrast COMPARISON: None. FINDINGS: VASCULATURE: Right common carotid artery: Unremarkable. No occlusion or significant stenosis. No dissection. Right internal carotid artery: Unremarkable. Extracranial segment is patent with no occlusion or significant stenosis. No dissection. Right external carotid artery: Unremarkable. No occlusion. Right vertebral artery: Unremarkable. No occlusion or significant stenosis. No dissection. Left common carotid artery: Unremarkable. No occlusion or significant stenosis. No dissection. Left internal carotid artery: Unremarkable. Extracranial segment is patent with no occlusion or significant stenosis. No dissection. Left external carotid artery: Unremarkable. No occlusion. Left vertebral artery: Unremarkable. No occlusion or significant stenosis. No dissection. NECK: Bones/joints: Unremarkable. No acute fracture. Soft tissues: Unremarkable. Lung apices: Clear. CAROTID STENOSIS REFERENCE USING NASCET CRITERIA: % ICA stenosis = (1 - narrowest ICA diameter/diameter of distal cervical ICA) x 100. Mild - <50% stenosis. Moderate - 50-69% stenosis. Severe - 70-94% stenosis. Near occlusion - 95-99% stenosis. Occluded - 100% stenosis. IMPRESSION: Negative CTA neck. Communications: Call Doctor Stroke Electronically signed by: Miguel Angel Maza MD 07/25/23 04:25 AM Diagnostic Findings Chest x-ray as per my interpretation no congestion EKG as per my interpretation : Rate 80, NSR, normal axis, no ischemia
[2023-07-25] MEDS: NSS + 20MEQ KCL 20 MEQ/1,000 ML BAG IV STA (07:21)
[2023-07-25] MEDS: DOXYCYCLINE HYCLATE 100 MG in DEXTROSE 5% MINI-B 100 ML IV STA (07:23)
[2023-07-25] MEDS ORDERED: PHARMACIST DISCHARGE MED REC CONSULT PRN (07:27)
[2023-07-25] MEDS: ASPIRIN 81 MG CHEW PO STA (07:27)
[2023-07-25] MEDS ORDERED: PROMETHAZINE HCL 6.25 MG in SODIUM CHLORIDE 0.9% 50 ML IV PRN (07:29)
[2023-07-25] MEDS ORDERED: LORazepam 0.5 MG TAB PO PRN (07:29)
[2023-07-25] MEDS ORDERED: diphenhydrAMINE Capsule 25 MG CAP PO PRN (07:29)
--- NOTE | 2023-07-25 07:58 | XRay Report ---
XR chest 1V portable HISTORY: Chest pain, nonspecific COMPARISON: Chest 07/23/2023. FINDINGS: The lungs are clear. Cardiac silhouette is normal in size. No pleural effusions. No pneumot horax. IMPRESSION: No acute process. ACT 112: Negative or not required by law. Electronically signed by: Joshua Watts M.D. 07/25/2023 7:57 AM
[2023-07-25 08:02] LABS: C Reactive Protein < 0.50 mg/dl (0-0.5); Creatine Kinase 45 U/L (26-192)
[2023-07-25 08:17] LABS: T4 Free Thyroxine 0.83 ng/dl (0.61-1.60)
--- NOTE | 2023-07-25 08:31 | Electrocardiogram Report ---
Test Reason : Blood Pressure : / mmHG Vent. Rate : 078 BPM Atrial Rate : 078 BPM P-R Int : 146 ms QRS Dur : 072 ms QT Int : 370 ms P-R-T Axes : 085 068 077 degrees QTc Int : 421 ms Normal sinus rhythm Low voltage QRS Borderline ECG When compared with ECG of 20-SEP-2022 18:57, No significant change was found Confirmed by Jose Sanchez ([id number]) on 07/25/2023 8:30:47 AM Referred By: REFERRED SELF Confirmed By:Jose Sanchez
[2023-07-25] MEDS: LORATADINE 10 MG TAB PO ONE (08:59)
[2023-07-25 09:16] LABS: Appearance Urine Clear (Clear); Bilirubin Urine Negative (Negative); Blood Urine Negative (Negative); Color Urine Yellow; Glucose Urine UA Negative (Negative); Ketones Urine Negative (Negative); Leukocyte Esterase Urine Negative (Negative); Nitrite Urine Negative (Negative); Protein Urine Negative (Negative); Specific Gravity Urine 1.019 (1.000-1.030); Urobilinogen Urine Negative (Negative)
[2023-07-25] MEDS: oxyCODONE HCL IR 5 MG TAB (IMMEDIATE RELEASE) PO PRN (09:38)
[2023-07-25] MEDS: ENOXAPARIN INJ 40 MG/0.4 ML SYR SQ SCH (11:25)
[2023-07-25] MEDS: GADOBUTROL 65ML VIAL IV ONE (12:23)
[2023-07-25] MEDS: FERROUS SULFATE 325 MG TAB PO SCH (13:34)
[2023-07-25] MEDS: VITAMIN B COMPLEX TAB PO SCH (13:34)
--- NOTE | 2023-07-25 13:34 | Magnetic Resonance Report ---
Brain MRI WITH AND WITHOUT CONTRAST HISTORY: L sided weakness, headache TECHNIQUE: Multiplanar multisequence MRI of the brain was performed both before and after the intrave nous administration of contrast. COMPARISON STUDY: Head CT 07/25/2023. FINDINGS: There are no areas of restricted diffusion to suggest acute infarction. The midline structu res are intact. The paranasal sinuses are clear. The mastoid air cells are clear. The ventricles and sulci are within normal limits for age. There is no mass, hematoma, midline shift. The major vascular flow-voids at the skull base are well maintained. Postcontrast sequences show no areas of abnormal e nhancement. There is a single punctate focus of T2 hyperintensity within the left parietal white esrtella er on image 18. This is of doubtful clinical significance and measures 3 mm in size. Otherwise, the b rain parenchyma demonstrates a normal signal intensity. IMPRESSION: No acute intracranial abnormality. ACT 112: Negative or not required by law. Electronically signed by: Joshua Watts M.D. 07/25/2023 1:32 PM
--- NOTE | 2023-07-25 13:44 | Neurology Consultation ---
Date of Consultation July 25, 2023 Assessment & Plan (1) Generalized weakness: Karla Morgan is a 33 yo F presenting with painful appendicular weakness in the setting of presumed HFMD. There are case reports of cocksackie virus causing sensory/motor GBS. Would first rule out central causes such as [place] which may produce a myelopathy and check CK to rule out a myopathic/myositis cause. MRI brain is reassuring and she has no cranial neuropathies. I am primarily concerned with how rapidly her symptoms have progressed since admission. Low threshold to check respiratory function if progression continues. -- Check CK, BELINDA, CRP -- MRI C and T spine with and without contrast -- If CK is negative, would recommend LP to check for protein, glucose, cell count for GBS and other infectious causes -- Agree with steroids and doxy for now, interested in dermatology input which is pending Telehealth Consultation Telehealth Information Telehealth Information: I performed this visit using a real-time telehealth connection between my location and the patients location ([facility]). After connecting through interactive tele-video, patient was identified by name and date of and/or wristband check.Patient (or authorized healthcare textile machinery sales representative) was informed that this was a telemedicine visit and it was being conducted confidentially over secure lines. My office door was closed and no one else was present in the room with me.Patient (or authorized healthcare textile machinery sales representative) provided consent to proceed with the visit, expressed an understanding of privacy and security of the telemedicine visit, and gave permission to have a hospital textile machinery sales representative in the room in order to assist with the visit and to conduct portions of the visit, as needed. I informed the patient (or authorized healthcare textile machinery sales representative) that I reviewed their record and presented the opportunity for them to ask any questions regarding the visit today. The patient agreed to participate. History of Present Illness Reason for Consultation: Rash and weakness Requesting Physician: Dr. Turner Attending Physician: Compa Turner MD History of Present Illness Karla Morgan is a 33 yo F presenting with rash followed by painful weakness. The patient reports running a 5k in the bose and days later developed a rash of the hands, feet, thighs and oral lesions. She was told this was HFMD, has exposure through her kids who are both healthy. Denies any contact with foreign substances, no new diet or supplements. She reports that she woke up at 1am with severe pain and weakness in the L arm extending into the chest wall. She came back to the ED for evaluation and since then notes worsening of weakness in all four extremities with pain. She describes the pain as neuropathic with burning and shooting pain from the joints. No specific joint or muscle pain that she can discern. 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 No hx of autoimmune disorders though aunt may have connective tissue disorder/raynauds. Hx of migraine but no significant headache. No fever, night sweats or other infectious symptoms. Allergies Allergy/AdvReac Type Severity Reaction Status Date / Time codeine AdvReac Intermediate vomits Verified 09/20/22 22:17 Home Medications Medication Instructions Recorded Confirmed Type ondansetron HCl 4 mg tablet 4 mg PO Q6H PRN Nausea 09/20/22 07/25/23 History vitamin B complex 1 tab PO DAILY 09/20/22 07/25/23 History zolmitriptan 5 mg disintegrating 5 mg translingual DIRECTED PRN 09/20/22 07/25/23 History tablet Migraine Headache iron,carbonyl 65 mg-vitamin C 125 1 tab PO DAILY 09/21/22 07/25/23 History mg tablet,delayed release (Vitron-C) Patient History Surgical History No pertinent past surgical history Family History Other Family history non-contributory Social History Smoking Status: Never smoker Tobacco Type: Cigarettes Preferred Language: Moroccan marital status: Current Living Situation: Family current occupational status: employed Feels Safe at Home: Yes Review of Systems +Appendicular pain and weakness. Physical Exam Neurological Examination: Mental Status: Awake and alert. Oriented to person, place, and time. Fluent. Comprehension intact. Affect appropriate. Cranial Nerves: II: pupils 3/3 to 2/2 III/IV/: Versions intact without nystagmus, no gaze preference. VII: Facial expression symmetric VIII: Hearing intact to voice IX/X: Palate elevates symmetrically XI: Shoulder shrug symmetric XII: Tongue midline Motor: Significant weakness in both proximal and distal muscles of the upper and lower extremities. Generally 4/5 proximally with distal 3/5 strength. Coordination: weakness precludes coordination testing Reflexes: Unable to assess over telemedicine Gait: Unable to stand unsupported, mild truncal ataxia Results & Data Vital Signs (Past 12 Hours) Vital Signs Temp Pulse Pulse Resp BP BP Pulse Ox 07/25/23 08:30 75 07/25/23 08:20 76 16 115/84 100 07/25/23 07:00 81 16 121/77 98 07/25/23 05:10 77 17 100 07/25/23 05:00 83 19 100 07/25/23 04:50 82 17 100 07/25/23 04:40 86 17 100 07/25/23 04:30 78 13 100 07/25/23 04:20 75 20 100 07/25/23 04:12 72 07/25/23 04:10 72 20 100 07/25/23 04:00 122/93 07/25/23 03:40 88 19 100 07/25/23 03:40 78 12 100 07/25/23 03:36 81 10 L 100 07/25/23 03:17 36.5 C 86 18 131/82 99 07/25/23 03:13 78 12 116/80 100 O2 Del Method 07/25/23 08:30 07/25/23 08:20 Room Air 07/25/23 07:00 Room Air 07/25/23 05:10 07/25/23 05:00 07/25/23 04:50 07/25/23 04:40 07/25/23 04:30 07/25/23 04:20 07/25/23 04:12 07/25/23 04:10 07/25/23 04:00 07/25/23 03:40 07/25/23 03:40 Room Air 07/25/23 03:36 07/25/23 03:17 Room Air 07/25/23 03:13 Room Air Laboratory Results Abnormal lab results 07/25/23 07/25/23 Range/Units 03:45 09:07 RBC 4.03 L (4.20-5.40) M/uL Hct 35.9 L (37.0-47.0) % Eos # (Auto) 0.61 H (0.00-0.50) K/uL BUN/Creatinine Ratio 20.2 H (10-20) TSH 22.679 H (0.300-4.500) uIu/ml Urine pH 8.0 H (4.5-7.5) Diagnostic Findings MRI brain - Unremarkable
--- NOTE | 2023-07-25 15:33 | Hospitalist Progress Note ---
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 Patient was doing 5K run in the bose prior to onset of illness, no recollection of recent tick bite. Patient was diagnosed with nwhb-ivwh-iby-mouth disease as an outpatient 07/21 - prescribed steroid ointment, outpatient varicella and measles done given oral lesions, patient was recommended supportive management for presumptive viral illness. Patient presented to the ED 07/22, was discharged on a steroid course. Swallowing problem improved but rash kept getting worse, also started having bilateral leg weakness and bilateral upper extremity weakness. She also complained of bilateral upper extremity numbness. Denied fever or chills, reported eating okay and moving bowels okay, denied diarrheal illness. OP chart reviewed 07/24. She is being managed for the following: Strokelike symptoms following likely viral exanthematous illness (possible habb-avqj-osu-mouth disease) Rule out tickborne infection Recent 5K run in the bose, followed by skin rash, followed by appendicular weakness. No fever. No diarrheal illness. Admitting labs: CBC and BMP WNL, ESR/CRP and CPK negative. TSH 22.6 and FT4 0.83. negative.UA negative for UTI. Admitting imagings: CXR/CTA head and neck/CT head/brain MRI with no acute finding. Echo with EF of 60 to 65%, suggestive of trivial patent foramen ovale. Follow-up tickborne serology: Either negative or pending so far. Continue frequent neurochecks. Telemetry monitoring. Dermatology consulted - re: worsening maculopapular rash, await recommendation. Likely complicated HFMD, continue supportive management, consult ID. Neurology evaluating, recommends MRI C and T-spine, possible LP evaluation. DC aspirin. Patient does not want LP to be done. Follow closely for any concern of GBS, patient has been advised to report to nursing immediately if she has any trouble breathing or further worsening weakness. Patient already states improving weakness by afternoon. Will continue with the steroids (famotidine for gi protection) and doxycycline for now. Subclinical hypothyroidism: TSH 22.6, fT4 wnl. Started levothyroxine at 25 mcg daily, repeat TFT at 6 weeks, follow-up with PCP. Other chronic medical conditions: Continue with/resume home meds as and when able. migraine, Patient stable. No headache now. anxiety disorder, not on maintenance medications past tobacco abuse DVT prophylaxis per Lovenox subcu Full code Time spent evaluating patient, direct bedside care, chart review, placing orders, interpretation of diagnostic studies, discussion with consultants, patient, and family members, as well as other required patient management activities is __75__ minutes. Please note the above document was generated using voice recognition software. It may contain grammatical, syntax or spelling errors. Any formal questions or concerns about the content, text or information contained within the body of this dictation should be directly addressed to the undersigned for clarification. Admission and Anticipated Discharge Date Admission Date: July 25, 2023 Subjective Patient was seen and examined at bedside. Patient was lying in bed, on room air, in mild distress secondary to pain and weakness and generalized illness. Patient reports all extremity weakness, numbness in bilateral upper extremities. Patient otherwise reports eating okay, reports itching getting better, nonpainful rash. Patient denies febrile illness, also denies recent diarrheal illness. Denies cough or sore throat. Patient was again reevaluated during the day, patient's at bedside this time. Was also updated on plan of care. Patient reports feeling better/strength getting better,. Physical Exam Physical Exam: GENERAL: uncomfortable, anxious, no respiratory distress SKIN: Normal color, nontender maculopapular rashes affecting the face, abdomen, both upper and lower extremities, warm HEENT: [place] palpebral conjunctivae, no ptosis, moist buccal mucosa, raised lesions on buccal mucosa, no obvious ulcerations NECK : Supple, no tenderness CHEST : CTA, no tenderness HEART : RRR, no obvious murmurs ABDOMEN: Some distention, nontender EXTREMITIES : No LE swelling/tenderness, no other conspicuous deformities noted, reflexes 2-3. NEUROLOGIC : Coherent, no facial asymmetry, MMTS RUE 4/5, LUE 3/5, BLE 4/5, left pronator drift, gait and stance not assessed Results & Data Results & Data Vital Signs (Past 12 Hours) Vital Signs Temp Pulse Pulse Resp BP BP Pulse Ox 07/25/23 13:43 36.6 C 81 15 142/108 H 96 07/25/23 08:30 75 07/25/23 08:20 76 16 115/84 100 07/25/23 07:00 81 16 121/77 98 07/25/23 05:10 77 17 100 07/25/23 05:00 83 19 100 07/25/23 04:50 82 17 100 07/25/23 04:40 86 17 100 07/25/23 04:30 78 13 100 07/25/23 04:20 75 20 100 07/25/23 04:12 72 07/25/23 04:10 72 20 100 07/25/23 04:00 122/93 07/25/23 03:40 88 19 100 07/25/23 03:40 78 12 100 07/25/23 03:36 81 10 L 100 07/25/23 03:17 36.5 C 86 18 131/82 99 07/25/23 03:13 78 12 116/80 100 O2 Del Method 07/25/23 13:43 Room Air 07/25/23 08:30 07/25/23 08:20 Room Air 07/25/23 07:00 Room Air 07/25/23 05:10 07/25/23 05:00 07/25/23 04:50 07/25/23 04:40 07/25/23 04:30 07/25/23 04:20 07/25/23 04:12 07/25/23 04:10 07/25/23 04:00 07/25/23 03:40 07/25/23 03:40 Room Air 07/25/23 03:36 07/25/23 03:17 Room Air 07/25/23 03:13 Room Air
[2023-07-25] MEDS: DOXYCYCLINE HYCLATE 100 MG CAP PO SCH (20:34)
[2023-07-25] MEDS: MELATONIN 3 MG TAB PO PRN (21:55)
[2023-07-25] MEDS: diphenhydrAMINE 2%/ZINC 0.1% CREAM 28.4GM TUBE EXT PRN (21:55)
[2023-07-26 06:44] LABS: Hematocrit (blood only) 31.5 % (37.0-47.0); Hemoglobin 10.7 g/dl (12.0-16.0); Mean Corpuscular Hemoglobin 30.2 pg (25.0-34.0); Mean Platelet Volume 10.5 fL (9.4-12.4); Platelet Count 193 K/uL (130-400); RDW Coefficient of Variation 12.8 % (11.5-14.5); Red Blood Count 3.54 M/uL (4.20-5.40); White Blood Count 6.99 K/ul (4.8-10.8)
[2023-07-26 07:24] LABS: Basophils # (auto) 0.04 K/uL (0.00-0.20); Basophils % (auto) 0.6 %; Eosinophils # (auto) 0.57 K/uL (0.00-0.50); Eosinophils % (auto) 8.2 %; Immature Granulocytes # (auto) 0.02 K/uL (0.01-0.20); Immature Granulocytes % (auto) 0.3 %; Lymphocytes # (auto) 2.43 K/uL (1.20-3.40); Lymphocytes % (auto) 34.8 %; Monocytes % (auto) 7.2 %; Neutrophils # (auto) 3.43 K/uL (1.40-6.50); Neutrophils % (auto) 48.9 %
[2023-07-26 07:46] LABS: Estimated Average Glucose 100 mg/dl; Hemoglobin A1C 5.1 % (4.5-5.6)
[2023-07-26 07:50] LABS: BUN Creatinine Ratio 15.5 (10-20); Calcium 8.6 mg/dl (8.6-10.3); Chol HDL Ratio 3.4 (0-5); Creatinine Clr Calc Pharmacy 85.4 ml/min; Est GFR (African American) 88.3 ml/min; Est GFR (Non-African American) 76.2 ml/min; Potassium 3.8 mmol/L (3.5-5.1)
[2023-07-26] MEDS: ACETAMINOPHEN 325 MG TAB PO PRN (08:56)
[2023-07-26] MEDS: predniSONE 20 MG TAB PO SCH (08:58)
[2023-07-26] MEDS: LORATADINE 10 MG TAB PO SCH (08:58)
[2023-07-26] MEDS: LEVOTHYROXINE SODIUM 25 MCG TABLET PO SCH (08:58)
[2023-07-26] MEDS: FAMOTIDINE 20 MG TAB PO SCH (08:58)
[2023-07-26] MEDS ORDERED: ASPIRIN 81 MG ECTAB PO SCH (09:00)
[2023-07-26] MEDS: GADOBUTROL 30ML VIAL IV ONE (10:27)
--- NOTE | 2023-07-26 10:54 | Magnetic Resonance Report ---
THORACIC SPINE MRI WITH AND WITHOUT CONTRAST HISTORY: generalized appendicular weakness TECHNIQUE: Multiplanar multisequence MRI of the thoracic spine was performed both before and after th e intravenous administration of contrast. COMPARISON: None. FINDINGS: Motion artifact results in suboptimal evaluation. No fracture or subluxation within the thoracic spin e. Disc spaces are preserved. No disc herniations. No significant central canal or neural foraminal n arrowing. Paravertebral soft tissues are unremarkable. No abnormal enhancement. The thoracic spinal c ord is normal and course, caliber, and signal intensity. IMPRESSION: Motion artifact results in suboptimal evaluation. However, no significant abnormality within the thor acic spine. ACT 112: Negative or not required by law. Electronically signed by: Joshua Watts M.D. 07/26/2023 10:52 AM
--- NOTE | 2023-07-26 10:56 | Magnetic Resonance Report ---
CERVICAL SPINE MRI WITH AND WITHOUT CONTRAST HISTORY: generalized appendicular weakness TECHNIQUE: Multiplanar multisequence MRI of the cervical spine was performed both before and after th e use of intravenous contrast. COMPARISON STUDY: Cervical spine CT 10/23/2018. FINDINGS: Motion artifact results in suboptimal evaluation. No fracture or subluxation. Disc spaces a re preserved. Prevertebral soft tissues and the C1-C2 interval are intact. There is a posterior fossa is unremarkable. The cervical spinal cord is normal in course, caliber, and signal intensity. No abn ormal enhancement identified. No disc herniations. C2-C3: No significant central canal or neural foraminal narrowing. C3-C4: No significant central canal or neural foraminal narrowing. C4-C5: No significant central canal or neural foraminal narrowing. Small broad-based posterior disc b ulge. C5-C6: No significant central canal or neural foraminal narrowing. Small broad-based posterior disc b ulge. C6-C7: No significant central canal or neural foraminal narrowing. C7-T1: No significant central canal or neural foraminal narrowing. IMPRESSION: No significant abnormality within the cervical spine. ACT 112: Negative or not required by law. Electronically signed by: Joshua Watts M.D. 07/26/2023 10:55 AM
--- NOTE | 2023-07-26 14:17 | Neurology Progress Note ---
Date of Service July 26, 2023 Assessment & Plan (1) Generalized weakness: Karla Morgan is a 33 yo F presenting with painful appendicular weakness, improved today. With a positive VZV IGM in hindsight this is not HDMF but rather disseminated zoster which can cause a radiculopathy. Rash notable in C5/C6 dermatome in the L arm. -- Agree with steroids, will need IV acyclovir -- Workup for cause of dissemination -- EMG in 6 weeks if weakness persists -- Neuropathic pain management - gabapentin 100mg TID and amitriptyline 25mg qhs to start - both can be increased as needed. Subjective Telehealth Information I performed this visit using a real-time telehealth connection between my location and the patients location ([facility]). After connecting through interactive tele-video, patient was identified by name and date of and/or wristband check.Patient (or authorized healthcare outside dealer sales representative) was informed that this was a telemedicine visit and it was being conducted confidentially over secure lines. My office door was closed and no one else was present in the room with me.Patient (or authorized healthcare outside dealer sales representative) provided consent to proceed with the visit, expressed an understanding of privacy and security of the telemedicine visit, and gave permission to have a hospital outside dealer sales representative in the room in order to assist with the visit and to conduct portions of the visit, as needed. I informed the patient (or authorized healthcare outside dealer sales representative) that I reviewed their record and presented the opportunity for them to ask any questions regarding the visit today. The patient agreed to participate. Since yesterday patient feels that her strength is improving but she continues to have painful rash and pain in her left arm with swelling of the hand. Of note her VZV titer has returned positive as ordered through [employer]. No new lesions noted. Review of Systems +L arm swelling and pain Physical Exam Neurological Examination: Mental Status: Awake and alert. Oriented to person, place, and time. Fluent. Comprehension intact. Affect appropriate. Cranial Nerves: II: pupils 3/3 to 2/2 III/IV/: Versions intact without nystagmus, no gaze preference. VII: Facial expression symmetric VIII: Hearing intact to voice IX/X: Palate elevates symmetrically XI: Shoulder shrug symmetric XII: Tongue midline Motor: Significant weakness in both proximal and distal muscles of the upper and lower extremities. Generally 4/5 proximally with distal 4/5 strength improved today. Reflexes: Unable to assess over telemedicine Gait: Able to ambulate unsupported Results & Data Vital Signs (Past 12 Hours) Vital Signs Temp Pulse Pulse Resp BP Pulse Ox Pulse Ox 07/26/23 11:50 83 L 07/26/23 11:49 37.3 C 83 116/78 98 07/26/23 08:00 37.1 C 86 16 129/78 100 07/26/23 07:31 75 07/26/23 03:34 36.4 C L 88 18 148/76 H 96 O2 Del Method O2 Del Method 07/26/23 11:50 Room Air 07/26/23 11:49 Room Air 07/26/23 08:00 Room Air 07/26/23 07:31 07/26/23 03:34 Room Air Laboratory Results + VZV IGM Diagnostic Findings MRI C and T spine unremarkable
--- NOTE | 2023-07-26 14:39 | Hospitalist Progress Note ---
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 Patient was doing 5K run in the bose prior to onset of illness, no recollection of recent tick bite. Patient was diagnosed with fiqy-dmsd-dna-mouth disease as an outpatient 07/21 - prescribed steroid ointment, outpatient varicella and measles done given oral lesions, patient was recommended supportive management for presumptive viral illness. Patient presented to the ED 07/22, was discharged on a steroid course. Swallowing problem improved but rash kept getting worse, also started having bilateral leg weakness and bilateral upper extremity weakness. She also complained of bilateral upper extremity numbness. Denied fever or chills, reported eating okay and moving bowels okay, denied diarrheal illness. OP chart reviewed 07/24. She is being managed for the following: Strokelike symptoms following likely viral exanthematous illness Disseminated zoster related polyradiculopathy: patient agreeable for HIV test, patient to follow-up with PCP office for age-appropriate cancer screening. Patient denies any chronic steroid use or cancer history. Rule out tickborne infection Recent 5K run in the bose, followed by skin rash, followed by appendicular weakness. No fever. No diarrheal illness. Admitting labs: CBC and BMP WNL, ESR/CRP and CPK negative. TSH 22.6 and FT4 0.83. negative.UA negative for UTI. Admitting imagings: CXR/CTA head and neck/CT head/brain MRI with no acute finding. Echo with EF of 60 to 65%, suggestive of trivial patent foramen ovale. MRI C-spine and T-spine with no acute finding. Follow-up tickborne serology: Either negative or pending so far. Continue frequent neurochecks. Telemetry monitoring. No dermatology availability in the hospital. Start acyclovir 07/25, gabapentin and amitriptyline for neuropathic pain. Follow HIV test. Neurology evaluating, EMG in 6 weeks if weakness persists. Continue with the steroids (famotidine for gi protection) and doxycycline for now. Await ID input. Subclinical hypothyroidism: TSH 22.6, fT4 wnl. Started levothyroxine at 25 mcg daily, repeat TFT at 6 weeks, follow-up with PCP. Other chronic medical conditions: Continue with/resume home meds as and when able. migraine, Patient stable. No headache now. anxiety disorder, not on maintenance medications past tobacco abuse DVT prophylaxis per Lovenox subcu Full code Time spent evaluating patient, direct bedside care, chart review, placing orders, interpretation of diagnostic studies, discussion with consultants, patient, and family members, as well as other required patient management activities is __87__ minutes. Please note the above document was generated using voice recognition software. It may contain grammatical, syntax or spelling errors. Any formal questions or concerns about the content, text or information contained within the body of this dictation should be directly addressed to the undersigned for clarific ation. Admission and Anticipated Discharge Date Admission Date: July 25, 2023 Subjective Patient was seen and examined at bedside. Patient was ambulating in room, on room air. Reports LE strength improving. BUE numb and still weak. Can move all extremities. Patient otherwise reports eating okay, reports itching getting better. Patient denies febrile illness, also denies recent diarrheal illness. Denies cough or sore throat. 07/22/23 VZV IgM Ab came back positive at 1.63 [Only to access this information, it took almost 30 minutes. Slow log in/ was logged out multiple times, spent 15 min, then called tech support another 10 min and still the system is so slow e elayne after being logged in. ] d/w neuro, likely zoster related polyradiculopathy - starting on acyclovir, and gabapentin/amitriptyline for neuropathic pain. d/w patient , she is agreeable and understands the risks associated w/ medications, maria fernanda kidney injury and TTP HUS related to acyclovir. Physical Exam Physical Exam: GENERAL: NAD, no respiratory distress SKIN: Normal color, nontender maculopapular rashes affecting the face, abdomen, both upper and lower extremities, warm HEENT: [place] palpebral conjunctivae, no ptosis, moist buccal mucosa, raised lesions on buccal mucosa, no obvious ulcerations NECK : Supple, no tenderness CHEST : CTA, no tenderness HEART : RRR, no obvious murmurs ABDOMEN: Some distention, nontender EXTREMITIES : No LE swelling/tenderness, no other conspicuous deformities noted, reflexes 2-3. NEUROLOGIC : Coherent, no facial asymmetry, MMTS RUE 4/5, LUE 3/5, BLE 5/5, left pronator drift, gait and stance not assessed Results & Data Results & Data Vital Signs (Past 12 Hours) Vital Signs Temp Pulse Pulse Resp BP Pulse Ox Pulse Ox 07/26/23 11:50 83 L 07/26/23 11:49 37.3 C 83 116/78 98 07/26/23 08:00 37.1 C 86 16 129/78 100 07/26/23 07:31 75 07/26/23 03:34 36.4 C L 88 18 148/76 H 96 O2 Del Method O2 Del Method 07/26/23 11:50 Room Air 07/26/23 11:49 Room Air 07/26/23 08:00 Room Air 07/26/23 07:31 07/26/23 03:34 Room Air
[2023-07-26] MEDS: ZOLMITRIPTAN PO PRN (16:00)
[2023-07-26] MEDS: ACYCLOVIR SOD 660 MG in DEXTROSE 5% 250 ML IV SCH (16:09)
--- OUTSIDE RECORDS SUMMARY | 2023-07-26 20:15 | External Medical Summary ---
Author Name Unknown Address Unknown Organization : Laboratory Report Ordering Provider Test Date Status NASEEM WALDROP 07/22/2023 09:58:21 Final Observation Date Value Abnormality Reference (Units ) Status Varicella Zoster IgM 07/22/2023 09:58:21 1.63 Above high normal <=0.90 Final < or = 0.90 Negative
0. 91 - 1.09 Equivocal
> or = 1.10 Positive
Results from any one IgM assay should not be used
as a sole determinant of a current or recent
infection. Because an IgM test can yield false positive
results and low levels of IgM antibody may persist for
more than 12 months post infection, reliance on a
single test result could be misleading. If an acute
infection is suspected, consider obtaining a new
specimen and submit for both IgG and IgM testing in
two or more weeks.

Test Performed at:
[email or web address]
[id number]
[place] [address]
Joshua Hernandez M.D., Ph.D.,Director of Laboratories Performing Location
[2023-07-26] MEDS: AMITRIPTYLINE HCL 25 MG TAB PO SCH (20:29)
[2023-07-26] MEDS: GABAPENTIN 100 MG CAP PO SCH (20:29)
[2023-07-27 06:26] LABS: Hematocrit (blood only) 33.3 % (37.0-47.0); Hemoglobin 11.1 g/dl (12.0-16.0); Mean Corpuscular Hemoglobin 29.8 pg (25.0-34.0); Mean Corpuscular Hgb Conc 33.3 g/dL (32.0-36.0); Mean Corpuscular Volume 89.3 fL (80.0-100.0); Mean Platelet Volume 10.4 fL (9.4-12.4); Platelet Count 196 K/uL (130-400); RDW Coefficient of Variation 12.9 % (11.5-14.5); RDW Standard Deviation 42.3 fL (36.4-46.3); Red Blood Count 3.73 M/uL (4.20-5.40); White Blood Count 7.36 K/ul (4.8-10.8)
[2023-07-27 06:57] LABS: Basophils # (auto) 0.06 K/uL (0.00-0.20); Basophils % (auto) 0.8 %; Eosinophils % (auto) 9.5 %; Immature Granulocytes # (auto) 0.03 K/uL (0.01-0.20); Immature Granulocytes % (auto) 0.4 %; Lymphocytes # (auto) 2.67 K/uL (1.20-3.40); Lymphocytes % (auto) 36.3 %; Monocytes # (auto) 0.45 K/uL (0.11-0.59); Monocytes % (auto) 6.1 %; Neutrophils # (auto) 3.45 K/uL (1.40-6.50); Neutrophils % (auto) 46.9 %
[2023-07-27 07:16] LABS: BUN Creatinine Ratio 12.4 (10-20); Calcium 8.8 mg/dl (8.6-10.3); Creatinine Clr Calc Pharmacy 85.4 ml/min; Est GFR (African American) 88.3 ml/min; Est GFR (Non-African American) 76.2 ml/min; Phosphorus 4.5 mg/dl (2.5-4.9); Potassium 3.6 mmol/L (3.5-5.1)
--- NOTE | 2023-07-27 14:53 | Hospitalist Progress Note ---
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 Patient was doing 5K run in the bose prior to onset of illness, no recollection of recent tick bite. Patient was diagnosed with kvil-frqc-hez-mouth disease as an outpatient 07/21 - prescribed steroid ointment, outpatient varicella and measles done given oral lesions, patient was recommended supportive management for presumptive viral illness. Patient presented to the ED 07/22, was discharged on a steroid course. Swallowing problem improved but rash kept getting worse, also started having bilateral leg weakness and bilateral upper extremity weakness. She also complained of bilateral upper extremity numbness. Denied fever or chills, reported eating okay and moving bowels okay, denied diarrheal illness. OP chart reviewed 07/24. She is being managed for the following: Strokelike symptoms following likely viral exanthematous illness Disseminated zoster related polyradiculopathy: HIV test pending, patient to follow-up with PCP office for age-appropriate cancer screening. Patient denies any chronic steroid use or cancer history. Rule out tickborne infection Recent 5K run in the bose, followed by skin rash, followed by appendicular weakness. No fever. No diarrheal illness. Admitting labs: CBC and BMP WNL, ESR/CRP and CPK negative. TSH 22.6 and FT4 0.83. negative.UA negative for UTI. Admitting imagings: CXR/CTA head and neck/CT head/brain MRI with no acute finding. Echo with EF of 60 to 65%, suggestive of trivial patent foramen ovale. MRI C-spine and T-spine with no acute finding. Follow-up tickborne serology: Either negative or pending so far. Continue frequent neurochecks. Telemetry monitoring. C/w acyclovir 07/25, gabapentin and amitriptyline for neuropathic pain. Neurology evaled, EMG in 6 weeks if weakness persists. Continue with the steroids (famotidine for gi protection) and doxycycline for no w. Await ID input. Subclinical hypothyroidism: TSH 22.6, fT4 wnl. Started levothyroxine at 25 mcg daily, repeat TFT at 6 weeks, follow-up with PCP. Other chronic medical conditions: Continue with/resume home meds as and when able. migraine, Patient stable. No headache now. anxiety disorder, not on maintenance medications past tobacco abuse DVT prophylaxis per Lovenox subcu Full code Please note the above document was generated using voice recognition software. It may contain grammatical, syntax or spelling errors. Any formal questions or concerns about the content, text or information contained within the body of this dictation should be directly addressed to the undersigned for clarification. Admission and Anticipated Discharge Date Admission Date: July 26, 2023 Subjective Patient was seen and examined at bedside. Patient was Lying in bed, on room air. NAD reports feeling better, reports some stiffness and joint pain today. Patient otherwise reports eating okay, reports itching getting better. Skin rash is getting better. Patient denies febrile illness, also denies recent diarrheal illness. Denies cough or sore throat. Physical Exam Physical Exam: GENERAL: NAD, no respiratory distress SKIN: Normal color, nontender maculopapular rashes affecting the face, abdomen, both upper and lower extremities, warm HEENT: Cantril palpebral conjunctivae, no ptosis, moist buccal mucosa, raised lesions on buccal mucosa, no obvious ulcerations NECK : Supple, no tenderness CHEST : CTA, no tenderness HEART : RRR, no obvious murmurs ABDOMEN: Some distention, nontender EXTREMITIES : No LE swelling/tenderness, no other conspicuous deformities noted, reflexes 2-3. NEUROLOGIC : Coherent, no facial asymmetry, MMTS RUE 4/5, LUE 3/5, BLE 5/5, left pronator drift, gait and stance not assessed Results & Data Results & Data Vital Signs (Past 12 Hours) Vital Signs Temp Pulse Pulse Resp BP Pulse Ox O2 Del Method 07/27/23 12:13 36.8 C 83 108/70 98 Room Air 07/27/23 10:22 64 07/27/23 09:33 36.8 C 113/74 97 Room Air 07/27/23 03:08 36.9 C 70 20 122/78 98 Room Air
[2023-07-27 17:53] LABS: Anti Nuclear Antibody Screen NEGATIVE (NEGATIVE)
[2023-07-28 08:02] LABS: Hemoglobin 10.7 g/dl (12.0-16.0); Mean Corpuscular Hemoglobin 29.6 pg (25.0-34.0); Mean Corpuscular Hgb Conc 33.4 g/dL (32.0-36.0); Mean Corpuscular Volume 88.6 fL (80.0-100.0); Mean Platelet Volume 10.1 fL (9.4-12.4); Platelet Count 198 K/uL (130-400); RDW Coefficient of Variation 12.7 % (11.5-14.5); RDW Standard Deviation 41.6 fL (36.4-46.3); Red Blood Count 3.61 M/uL (4.20-5.40); White Blood Count 6.94 K/ul (4.8-10.8)
[2023-07-28 08:13] LABS: BUN Creatinine Ratio 17.8 (10-20); Calcium 8.6 mg/dl (8.6-10.3); Est GFR (African American) 96.7 ml/min; Est GFR (Non-African American) 83.4 ml/min; Potassium 3.4 mmol/L (3.5-5.1)
[2023-07-28 08:19] LABS: Basophils # (auto) 0.04 K/uL (0.00-0.20); Basophils % (auto) 0.6 %; Eosinophils # (auto) 0.74 K/uL (0.00-0.50); Eosinophils % (auto) 10.7 %; Immature Granulocytes # (auto) 0.05 K/uL (0.01-0.20); Immature Granulocytes % (auto) 0.7 %; Lymphocytes % (auto) 34.6 %; Monocytes # (auto) 0.52 K/uL (0.11-0.59); Monocytes % (auto) 7.5 %; Neutrophils # (auto) 3.19 K/uL (1.40-6.50); Neutrophils % (auto) 45.9 %
--- NOTE | 2023-07-28 12:12 | Hospitalist Progress Note ---
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 Patient was diagnosed with zeuf-yztp-res-mouth disease as an outpatient 07/21 - prescribed steroid ointment, outpatient varicella and measles done given oral lesions, patient was recommended supportive management for presumptive viral illness. Patient presented to the ED 07/22, was discharged on a steroid course. Swallowing problem improved but rash kept getting worse, also started having bilateral leg weakness and bilateral upper extremity weakness. She also complained of bilateral upper extremity numbness. Denied fever or chills, reported eating okay and moving bowels okay, denied diarrheal illness. OP chart reviewed 07/24. 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 Patient denies any chronic steroid use or cancer history. Rule out tickborne infection Recent 5K run in the bose, followed by skin rash, followed by appendicular weakness. No fever. No diarrheal illness. Admitting labs: CBC and BMP WNL, ESR/CRP and CPK negative. TSH 22.6 and FT4 0.83. negative.UA negative for UTI. Admitting imagings: CXR/CTA head and neck/CT head/brain MRI with no acute finding. Echo with EF of 60 to 65%, suggestive of trivial patent foramen ovale. MRI C-spine and T-spine with no acute finding. Follow-up tickborne serology: Either negative or pending so far. Continue frequent neurochecks. Telemetry monitoring. Neuro initially recommended LP; however neurology felt would be of no benefit and pt was not interested C/w acyclovir 07/25, gabapentin and amitriptyline for neuropathic pain. Neurology evaled, EMG in 6 weeks if weakness persists. Discussed with neurology again today, Dr. Holliday and offers no further recs at this time, recommends further involvement with Infectious disease, no further testing on neurology end Continue with the steroids (famotidine for gi protection) IV Acyclovir and doxycycline for now. ID recommending lumbar puncture with meningitis panel, check for syphilis concern for aseptic meningitis in setting of coxsackie virus Subclinical hypothyroidism: TSH 22.6, fT4 wnl. Started levothyroxine at 25 mcg daily, repeat TFT at 6 weeks, follow-up with PCP. TSH normal 1 year ago likely in setting of acute illness Anemia- hgb stable, 10.7, normocytic, obtain anemia pain in a.m. Other chronic medical conditions: Continue with/resume home meds as and when able. migraine, Patient stable. No headache now. anxiety disorder, not on maintenance medications past tobacco abuse DVT prophylaxis: Lovenox ordered but per MAR pt refusing as she feels she is walking enough and does not need this Full code PCP: Alia Jaquez A total of 80 minutes was spent coordinating, documenting, and providing care for this patient excluding time spent in the performance of separately billed services. This included personally viewing all current laboratories and imaging studies, medication reconciliation, outpatient chart review, and discussion with specialists. Admission and Anticipated Discharge Date Admission Date: July 26, 2023 Subjective Patient was seen and examined in 252. Follow-up disseminated zoster. Pt states this is first day she wasn't able to get out of bed this morning. She reports increased weakness to LUE this morning, "it is still early and I haven't got moving yet." She feels she continues to have increased pain to her upper extremities. is at bedside who also confirms that LUE is weaker today. She denies cp,sob, n/v/d/, abd pain, change in bowel or urinary habits. She hasn't ate today as it upsets her to require assistance to eat. Prior to all this she was running 5k. Rash started ~ 2 weeks ago as one spot that has gradually progressed to bilateral extremities upper and lower. It is very painful. Initially with upper/lower ext weakness but the lower has improved to point she is walking okay. She denies difficultly swallowing. She is hopeful to return home soon. Review of Systems Review of Systems: All systems reviewed & are unremarkable except as noted in HPI & below Physical Exam Physical Exam: Gen: WD/WN, NAD, A&O x3 HEENT: Normocephalic, atraumatic, conjunctivae moist, sclerae anicteric, mucous membranes moist. Lung: Clear to Auscultation bilaterally, no wheezes/rales/rhonchi Heart: Regular rate, regular rhythm, no murmurs, rubs, or gallops Abdomen: Soft, NT, ND +BS x 4 Extremities: No edema, extensor maculopapular rash diffusely on upper/lower ext, not vesicular, no secondary bacterial infection MSK: RUE 2/5 LUE 3/5, b/l LE 5/5 decreased reflexes on RLE, +2or 3 on LLE Skin: Warm, no rash, negative turgor. Results & Data Results & Data Vital Signs (Past 12 Hours) Vital Signs Temp Pulse Pulse Resp BP Pulse Ox O2 Del Method 07/28/23 10:53 37.2 C 101 H 109/74 97 Room Air 07/28/23 07:43 76 07/28/23 07:09 37.5 C 75 20 116/66 97 Room Air 07/28/23 03:05 36.8 C 77 20 109/61 98 Room Air Diagnostic Findings Chest X-Ray 07/25/23 03:40 XR chest 1V portable HISTORY: Chest pain, nonspecific COMPARISON: Chest 07/23/2023. FINDINGS: The lungs are clear. Cardiac silhouette is normal in size. No pleural effusions. No pneumothorax. IMPRESSION: No acute process. ACT 112: Negative or not required by law. Electronically signed by: Joshua Watts M.D. 07/25/2023 7:[address] 07/25/23 03:40 CR Exam(s): CT HEAD Without Contrast EXAM: CT Head Without Intravenous Contrast CLINICAL HISTORY: Reason for exam: Weakness of left leg and arm, paresthesias. TECHNIQUE: Axial computed tomography images of the head/brain without intravenous contrast. CTDI is 37.32 mGy and DLP is 624.41 mGy-cm. Automated exposure control was utilized for the study. A dose lowering technique was utilized adhering to the principles of ALARA. COMPARISON: 09/21/2072 FINDINGS: Brain: Unremarkable. No hemorrhage. No significant white matter disease. No edema. Ventricles: Unremarkable. No ventriculomegaly. Bones/joints: Unremarkable. No acute fracture. Soft tissues: Unremarkable. Sinuses: Unremarkable as visualized. No acute sinusitis. Mastoid air cells: Unremarkable as visualized. No mastoid effusion. IMPRESSION: Normal head/brain CT. Communications: Call Doctor Stroke Electronically signed by: Miguel Angel Maza MD 07/25/23 04:22 AM Head CTA 07/25/23 03:40 CR Exam(s): CTA HEAD With Contrast IV Amt: 117 ML OPTIRAY 320 EXAM: CT Angiography Head With Intravenous Contrast CLINICAL HISTORY: Reason for exam: Weakness of left leg and arm, paresthesias. TECHNIQUE: Axial computed tomographic angiography images of the head with intravenous contrast. CTDI is 11.75 mGy and DLP is 458.74 mGy-cm. Automated exposure control was utilized for the study. A dose lowering technique was utilized adhering to the principles of ALARA. MIP reconstructed images were created and reviewed. CONTRAST: Patient received 117 ML OPTIRAY 320 of IV contrast COMPARISON: No relevant prior studies available. FINDINGS: Right internal carotid artery: No acute findings. Intracranial segment is patent with no significant stenosis. No aneurysm. Right anterior cerebral artery: Unremarkable. No occlusion or significant stenosis. No aneurysm. Right middle cerebral artery: Unremarkable. No occlusion or significant stenosis. No aneurysm. Right posterior cerebral artery: Unremarkable. No occlusion or significant stenosis. No aneurysm. Right vertebral artery: Unremarkable as visualized. Left internal carotid artery: No acute findings. Intracranial segment is patent with no significant stenosis. No aneurysm. Left anterior cerebral artery: Unremarkable. No occlusion or significant stenosis. No aneurysm. Left middle cerebral artery: Unremarkable. No occlusion or significant stenosis. No aneurysm. Left posterior cerebral artery: Unremarkable. No occlusion or significant stenosis. No aneurysm. Left vertebral artery: Unremarkable as visualized. Basilar artery: Unremarkable. No occlusion or significant stenosis. No aneurysm. IMPRESSION: Normal head CTA. Communications: Call Doctor Stroke Electronically signed by: Miguel Angel Maza MD 07/25/23 04:23 AM Neck CTA 07/25/23 03:40 CR Exam(s): CTA NECK With Contrast IV Amt: 117 ML OPTIRAY 320 EXAM: CT Angiography Neck With Intravenous Contrast CLINICAL HISTORY: Reason for exam: Weakness of left leg and arm, paresthesias. TECHNIQUE: Routine carotid CT angiography protocol was performed with intravenous contrast. NASCET criteria using the distal ICAs for comparison were used for evaluation of stenoses. CTDI is 11.75 mGy and DLP is 458.74 mGy-cm. Automated exposure control was utilized for the study. A dose lowering technique was utilized adhering to the principles of ALARA. MIP reconstructed images were created and reviewed. 3D reconstructed images made available for CONTRAST: Patient received 117 ML OPTIRAY 320 of IV contrast COMPARISON: None. FINDINGS: VASCULATURE: Right common carotid artery: Unremarkable. No occlusion or significant stenosis. No dissection. Right internal carotid artery: Unremarkable. Extracranial segment is patent with no occlusion or significant stenosis. No dissection. Right external carotid artery: Unremarkable. No occlusion. Right vertebral artery: Unremarkable. No occlusion or significant stenosis. No dissection. Left common carotid artery: Unremarkable. No occlusion or significant stenosis. No dissection. Left internal carotid artery: Unremarkable. Extracranial segment is patent with no occlusion or significant stenosis. No dissection. Left external carotid artery: Unremarkable. No occlusion. Left vertebral artery: Unremarkable. No occlusion or significant stenosis. No dissection. NECK: Bones/joints: Unremarkable. No acute fracture. Soft tissues: Unremarkable. Lung apices: Clear. CAROTID STENOSIS REFERENCE USING NASCET CRITERIA: % ICA stenosis = (1 - narrowest ICA diameter/diameter of distal cervical ICA) x 100. Mild - <50% stenosis. Moderate - 50-69% stenosis. Severe - 70-94% stenosis. Near occlusion - 95-99% stenosis. Occluded - 100% stenosis. IMPRESSION: Negative CTA neck. Communications: Call Doctor Stroke Electronically signed by: Miguel Angel Maza MD 07/25/23 04:25 AM Brain MRI 07/25/23 07:27 Brain MRI WITH AND WITHOUT CONTRAST HISTORY: L sided weakness, headache TECHNIQUE: Multiplanar multisequence MRI of the brain was performed both before and after the intravenous administration of contrast. COMPARISON STUDY: Head CT 07/25/2023. FINDINGS: There are no areas of restricted diffusion to suggest acute infarction. The midline structures are intact. The paranasal sinuses are clear. The mastoid air cells are clear. The ventricles and sulci are within normal limits for age. There is no mass, hematoma, midline shift. The major vascular flow-voids at the skull base are well maintained. Postcontrast sequences show no areas of abnormal enhancement. There is a single punctate focus of T2 hyperintensity within the left parietal white matter on image 18. This is of doubtful clinical significance and measures 3 mm in size. Otherwise, the brain parenchyma demonstrates a normal signal intensity. IMPRESSION: No acute intracranial abnormality. ACT 112: Negative or not required by law. Electronically signed by: Joshua Watts M.D. 07/25/2023 1:32 PM Cervical Spine MRI 07/26/23 00:00 CERVICAL SPINE MRI WITH AND WITHOUT CONTRAST HISTORY: generalized appendicular weakness TECHNIQUE: Multiplanar multisequence MRI of the cervical spine was performed both before and after the use of intravenous contrast. COMPARISON STUDY: Cervical spine CT 10/23/2018. FINDINGS: Motion artifact results in suboptimal evaluation. No fracture or subluxation. Disc spaces are preserved. Prevertebral soft tissues and the C1-C2 interval are intact. There is a posterior fossa is unremarkable. The cervical spinal cord is normal in course, caliber, and signal intensity. No abnormal enhancement identified. No disc herniations. C2-C3: No significant central canal or neural foraminal narrowing. C3-C4: No significant central canal or neural foraminal narrowing. C4-C5: No significant central canal or neural foraminal narrowing. Small broad-based posterior disc bulge. C5-C6: No significant central canal or neural foraminal narrowing. Small broad- based posterior disc bulge. C6-C7: No significant central canal or neural foraminal narrowing. C7-T1: No significant central canal or neural foraminal narrowing. IMPRESSION: No significant abnormality within the cervical spine. ACT 112: Negative or not required by law. Electronically signed by: Joshua Watts M.D. 07/26/2023 10:55 AM Thoracic Spine MRI 07/26/23 00:00 THORACIC SPINE MRI WITH AND WITHOUT CONTRAST HISTORY: generalized appendicular weakness TECHNIQUE: Multiplanar multisequence MRI of the thoracic spine was performed both before and after the intravenous administration of contrast. COMPARISON: None. FINDINGS: Motion artifact results in suboptimal evaluation. No fracture or subluxation within the thoracic spine. Disc spaces are preserved. No disc herniations. No significant central canal or neural foraminal narrowing. Paravertebral soft tissues are unremarkable. No abnormal enhancement. The thoracic spinal cord is normal and course, caliber, and signal intensity. IMPRESSION: Motion artifact results in suboptimal evaluation. However, no significant abnormality within the thoracic spine. ACT 112: Negative or not required by law. Electronically signed by: Joshua Watts M.D. 07/26/2023 10:52 AM Medications Administered Current Inpatient Medications Acetaminophen (Acetaminophen 325 Mg Tab) 650 mg PO QID PRN PRN Reason: pain/fever Stop: 08/24/23 07:31 Last Admin: 07/28/23 07:15 Dose: 650 mg Amitriptyline HCl (Amitriptyline Hcl 25 Mg Tab) 25 mg PO HS [facility] Stop: 08/25/23 20:59 Last Admin: 07/27/23 21:01 Dose: 25 mg Diphenhydramine HCl (Diphenhydramine Capsule 25 Mg Cap) 25 mg PO QID PRN PRN Reason: Itching Stop: 08/24/23 07:28 Doxycycline Hyclate (Doxycycline Hyclate 100 Mg Cap) 100 mg PO BID [facility] Stop: 08/01/23 20:59 Last Admin: 07/28/23 07:16 Dose: 100 mg Enoxaparin Sodium (Enoxaparin Inj 40 Mg/0.4 Ml Syr) 40 mg SQ QAM [facility] Stop: 08/24/23 08:59 Last Admin: 07/28/23 07:17 Dose: Not Given Famotidine (Famotidine 20 Mg Tab) 20 mg PO QAM [facility] Stop: 08/25/23 08:59 Last Admin: 07/28/23 07:16 Dose: 20 mg Ferrous Sulfate (Ferrous Sulfate 325 Mg Tab) 325 mg PO DAILY [facility]; Protocol Stop: 08/24/23 11:44 Last Admin: 07/28/23 07:16 Dose: 325 mg Gabapentin (Gabapentin 100 Mg Cap) 100 mg PO TID [facility] Stop: 08/25/23 20:59 Last Admin: 07/28/23 07:16 Dose: 100 mg Promethazine HCl 6.25 mg/ (Sodium Chloride) 50.25 mls @ 201 mls/hr IV Q6H PRN PRN Reason: Nausea And Vomiting Stop: 08/24/23 07:28 Acyclovir Sodium 660 mg/ (Dextrose) 263.2 mls @ 250 mls/hr IV Q8H [facility]; Protocol Stop: 08/02/23 14:59 Last Infusion: 07/28/23 07:05 Dose: Infused Levothyroxine Sodium (Levothyroxine Sodium 25 Mcg Tablet) 25 mcg PO DAILYBB [facility] Stop: 08/25/23 06:29 Last Admin: 07/28/23 05:52 Dose: 25 mcg Loratadine (Loratadine 10 Mg Tab) 10 mg PO QAM [facility] Stop: 08/25/23 08:59 Last Admin: 07/28/23 07:17 Dose: Not Given Lorazepam (Lorazepam 0.5 Mg Tab) 0.5 mg PO TID PRN PRN Reason: Anxiety Stop: 08/24/23 07:28 Melatonin (Melatonin 3 Mg Tab) 3 mg PO HS PRN PRN Reason: Sleep Stop: 08/24/23 20:47 Last Admin: 07/27/23 22:17 Dose: 3 mg Zolmitriptan: Non- Formulary Patient's Own Med 1 each PO Q7D PRN PRN Reason: Migraine Headache Stop: 08/25/23 16:44 Last Admin: 07/26/23 16:00 Dose: 1 tab Oxycodone HCl (Oxycodone Hcl Ir 5 Mg Tab (Immediate Release)) 5 mg PO Q4H PRN PRN Reason: Pain Stop: 08/08/23 07:28 Last Admin: 07/28/23 07:16 Dose: 5 mg Prednisone (Prednisone 20 Mg Tab) 20 mg PO QAM [facility]CE[facility] Stop: 08/25/23 08:59 Last Admin: 07/28/23 07:16 Dose: 20 mg Vitamin B Complex (Vitamin B Complex Tab) 1 tab PO DAILY [facility] Stop: 08/24/23 11:29 Last Admin: 07/28/23 07:16 Dose: 1 tab Zinc Acetate/Diphenhydramine (Diphenhydramine 2%/Zinc 0.1% Cream 28.4gm Tube) 1 appln EXT QID PRN PRN Reason: itchy skin Stop: 08/24/23 07:28 Last Admin: 07/25/23 21:55 Dose: 1 appln
[2023-07-28] MEDS: POTASSIUM CHLORIDE CRTAB 20 MEQ TABCR PO STA (12:41)
[2023-07-28] MEDS ORDERED: LORazepam 1 MG/1 ML SYR ED Inj Use IV STA (12:47)
[2023-07-28] MEDS: LORazepam 0.25 MG in SYRINGE 0.125 ML IV SCH (13:31)
--- NOTE | 2023-07-28 13:44 | Infectious Disease Consult ---
Date of Service July 28, 2023 Telehealth Information I performed this visit using a real-time telehealth connection between my location and the patients location ([facility]). 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 My office door was closed and no one else was present in the room with me.Patient (or authorized healthcare livestock sales representative) provided consent to proceed with the visit, expressed an understanding of privacy and security of the telemedicine visit, and gave permission to have a hospital livestock sales representative in the room in order to assist with the visit and to conduct portions of the visit, as needed. I informed the patient (or authorized healthcare livestock sales representative) that I reviewed their record and presented the opportunity for them to ask any questions regarding the visit today. The patient agreed to participate. Assessment & Plan (1) Left-sided weakness: Plan: The picture of the rash, myalgia and arthralgia followed after that with loc alized weakness is suggestive of viral illness with aseptic meningitis. The common organism associated with rash and aseptic meningitis is the enterovirus including Coxsackie and echovirus. However, as per the respiratory pathogen panel, the enterovirus PCR was negative. Therefore, I would recommend obtaining lumbar puncture with CSF studies. [place] is less likely in her case especially that symptoms usually start around 2-4 weeks after an acute viral/bacterial illness. (2) Weakness of right upper extremity: (3) Rash and nonspecific skin eruption: Plan 1) Please obtain lumbar puncture with CSF analysis including CSF count, glucose, protein, meningitis encephalitis panel, bacterial/fungal/AFB cultures, VDRL (if the syphilis screen is positive), & oligoclonal bands. 2) I agree with both IV acyclovir and oral doxycycline for now. 3) Please sent for syphilis screen if not done yet. 4) Given the history of eating cheese in [place], I would recommend sending for brucella serology. 5) We will follow up on the rest of the tick-borne studies as well as Rickettsia/typhus studies and HIV. History of Present Illness History of Present Illness Ms. Morgan is a 33-year-old woman relatively healthy (with medical history of migraine and anxiety disorder) who was admitted to [facility] on 05/31 because of left-sided weakness. According to her report, the illness started around 10 days prior to presentation with blistering rash on the back of her left thigh which later appeared over her left arm and right arm. It was more of the papular pattern and itchy in nature. Towards the end of the illness, the rash already have involved her feet and trunk. Around 3 days through her symptoms, she started having difficulty swallowing along with multiple mouth sores. At that time, she went to an urgent care and was informed that she likely has the hand mouth foot disease. 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 Couple of days prior to presentation, she started having left-sided weakness especially of the left lower extremity and was not able to ambulate. She was also having some pain and tingling in her left extremities. The illness was also associated with arthralgia and diffuse myalgia especially the last few days prior to presentation. Her left-sided weakness was followed after that with a right upper extremity weakness (around that time, her left-sided weakness has improved). The weakness on the right side was associated with pain which is currently experiencing while at the hospital. She did not endorse any fever or chills at home. No sick context around her. She reported traveling to [place] in April 2023 and mainly visited [place], [place], [place] and [place]. She reported eating cheese while tasting wine in [place]. Allergies Allergy/AdvReac Type Severity Reaction Status Date / Time codeine AdvReac Intermediate vomits Verified 09/20/22 22:17 Home Medications Medication Instructions Recorded Confirmed Type ondansetron HCl 4 mg tablet 4 mg PO Q6H PRN Nausea 09/20/22 07/25/23 History vitamin B complex 1 tab PO DAILY 09/20/22 07/25/23 History zolmitriptan 5 mg disintegrating 5 mg translingual DIRECTED PRN 09/20/22 07/25/23 History tablet Migraine Headache iron,carbonyl 65 mg-vitamin C 125 1 tab PO DAILY 09/21/22 07/25/23 History mg tablet,delayed release (Vitron-C) Patient History Surgical History No pertinent past surgical history Family History Other Family history non-contributory Social History Smoking Status: Never smoker Tobacco Type: Cigarettes Hx Alcohol Use: No Hx Substance Use: No Preferred Language: Serbian Communication Ability: Effective Returns Supervisor Required: No Beliefs That Will Affect Care: None marital status: Current Living Situation: Spouse current occupational status: employed Other Information That Helps Us Care for You: No Feels Safe at Home: Yes Safety Concerns: Feels Safe At This Time Review of Systems Constitutional:Fatigue,butno fever or chills Cardiovascular:no chest pain, or palpitations Respiratory:no shortness of breath, no cough Gastrointestinal:No nausea, vomiting, diarrhea. :No dysuria or hesitancy, no urinary discharge Musculoskeletal/Skin: Generalized fatigue and arthralgia Neurologic:no dizziness or headache, Upper extremities weakness (Rt more than left) Physical Exam Couldn't be obtained as the encounter was performed via Telemed Results & Data Vital Signs (Past 12 Hours) Vital Signs Temp Pulse Pulse Resp BP Pulse Ox O2 Del Method 07/28/23 10:53 37.2 C 101 H 109/74 97 Room Air 07/28/23 07:43 76 07/28/23 07:09 37.5 C 75 20 116/66 97 Room Air 07/28/23 03:05 36.8 C 77 20 109/61 98 Room Air Laboratory Results 07/22: RVP panel negative 07/24: Lyme disease screen negative 07/24: Anaplasma and Babesia PCR pending 07/24: HIV antigen/antibody pending 07/24: Early she DNA pending 07/24: Q fever serology pending 07/24: Rickettsia and typhus serology pending Diagnostic Findings MRI brain on 07/24: No acute pathologies
--- NOTE | 2023-07-28 14:12 | Fluoroscopy Report ---
Lumbar puncture under fluoroscopy INDICATION: Generalized weakness; evaluate for meningitis PROCEDURE: Procedure and risks were explained. Informed consent was obtained. A final timeout was com pleted. The patient was placed prone on the fluoroscopic exam table. The lower lumbar region was prep ped and draped in sterile fashion. 1% lidocaine was utilized for skin anesthesia. Utilizing fluoroscopic guidance, a 22-gauge spinal needle was advanced into the intrathecal space at the L3-4 disc space level. Spot images were obtained. Approximately 8 mL of clear CSF fluid was remov ed and sent to the lab for analysis. The needle was removed and Band-Aid applied. The patient tolerat ed the procedure well. Vital signs will be monitored postprocedure. Total fluoroscopy time 7 seconds. Study dose is 5.20mGy. IMPRESSION: Lumbar puncture as above. Performed, dictated, and signed by Jonas Morel PA-C; to be co-signed by Dr. Frankie Contreras. Electronically signed by: Frankie Contreras M.D. 07/28/2023 2:24 PM
[2023-07-28 14:32] LABS: Total Protein CSF 36.3 mg/dl (15-45)
[2023-07-28] MEDS: MoRPHine SULFATE 2 MG/ML CARP ONE (14:38)
[2023-07-28 14:50] LABS: Appearance CSF Clear; CSF Count Tube # 3; CSF Xanthrochromic No xanthochromia; Color CSF Colorless; Red Blood Cell CSF Manual 0 (0-); White Blood Cell CSF Manual 0 (0-5)
[2023-07-28 15:47] LABS: Cryptococcus neoformans/ga PCR Not Detected (NotDetected); Cytomegalovirus PCR Not Detected (NotDetected); Enterovirus PCR Not Detected (NotDetected); Escherichia coli K1 PCR Not Detected (NotDetected); Haemophilius influenzae PCR Not Detected (NotDetected); Herpes Simplex Virus 1 PCR Not Detected (NotDetected); Herpes Simplex Virus 2 PCR Not Detected (NotDetected); Human Herpes Virus 6 PCR Not Detected (NotDetected); Human Parechovirus PCR Not Detected (NotDetected); Listeria monocytogenes PCR Not Detected (NotDetected); Neisseria meningitidis PCR Not Detected (NotDetected); Streptococcus agalactiae PCR Not Detected (NotDetected); Streptococcus pneumoniae PCR Not Detected (NotDetected); Varicella Zoster Virus PCR Not Detected (NotDetected)
[2023-07-29 10:22] LABS: Hematocrit (blood only) 35.2 % (37.0-47.0); Hemoglobin 11.5 g/dl (12.0-16.0); Mean Corpuscular Hemoglobin 29.6 pg (25.0-34.0); Mean Corpuscular Hgb Conc 32.7 g/dL (32.0-36.0); Mean Corpuscular Volume 90.7 fL (80.0-100.0); Mean Platelet Volume 9.7 fL (9.4-12.4); Platelet Count 208 K/uL (130-400); RDW Coefficient of Variation 12.7 % (11.5-14.5); RDW Standard Deviation 42.2 fL (36.4-46.3); Red Blood Count 3.88 M/uL (4.20-5.40); White Blood Count 7.73 K/ul (4.8-10.8)
[2023-07-29 10:36] LABS: Albumin Globulin Ratio 1.4 (0.9-2); Albumin Level 3.9 gm/dl (3.4-5.0); BUN Creatinine Ratio 14.3 (10-20); Bilirubin,Total 0.4 mg/dl (0.2-1.0); Calcium 8.9 mg/dl (8.6-10.3); Creatinine Clr Calc Pharmacy 84.5 ml/min; Est GFR (African American) 87.2 ml/min; Est GFR (Non-African American) 75.3 ml/min; Globulin 2.7 gm/dl (2.5-4.0); Magnesium 1.9 mg/dl (1.7-2.4); Potassium 3.5 mmol/L (3.5-5.1); Total Protein 6.6 gm/dl (6.0-8.3)
[2023-07-29 10:59] LABS: Basophils # (auto) 0.03 K/uL (0.00-0.20); Basophils % (auto) 0.4 %; Eosinophils # (auto) 0.89 K/uL (0.00-0.50); Eosinophils % (auto) 11.5 %; Immature Granulocytes # (auto) 0.09 K/uL (0.01-0.20); Immature Granulocytes % (auto) 1.2 %; Lymphocytes # (auto) 2.15 K/uL (1.20-3.40); Lymphocytes % (auto) 27.8 %; Monocytes # (auto) 0.46 K/uL (0.11-0.59); Neutrophils # (auto) 4.11 K/uL (1.40-6.50); Neutrophils % (auto) 53.1 %
--- NOTE | 2023-07-29 11:50 | Hospitalist Progress Note ---
Date of Service July 29, 2023 Assessment & Plan (1) Left-sided weakness: Plan: 33-year-old lady with PMH of migraine, anxiety disorder, past tobacco abuse presented to the ED with complaint of worsening pruritic rash [started from her bottom which later spread to her arms, legs and face] since 1 week ago [employer]. Patient was doing 5K run in the bose prior to onset of illness, no recollection of recent tick bite. Patient was diagnosed with ruas-diza-gdf-mouth disease as an outpatient 07/21 - prescribed steroid ointment, outpatient varicella and measles done given oral lesions, patient was recommended supportive management for presumptive viral illness. Patient presented to the ED 07/22, was discharged on a steroid course. Swallowing problem improved but rash kept getting worse, also started having bilateral leg weakness and bilateral upper extremity weakness. She also complained of bilateral upper extremity numbness. Denied fever or chills, reported eating okay and moving bowels okay, denied diarrheal illness. OP chart reviewed 07/24. 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 Patient denies any chronic steroid use or cancer history. Rule out tickborne infection Recent 5K run in the bose, followed by skin rash, followed by appendicular weakness. No fever. No diarrheal illness. Admitting labs: CBC and BMP WNL, ESR/CRP and CPK negative. TSH 22.6 and FT4 0.83. negative.UA negative for UTI. Admitting imagings: CXR/CTA head and neck/CT head/brain MRI with no acute finding. Echo with EF of 60 to 65%, suggestive of trivial patent foramen ovale. MRI C-spine and T-spine with no acute finding. Follow-up tickborne serology: Either negative or pending so far. Continue frequent neurochecks. Telemetry monitoring. Neuro initially recommended LP; however neurology felt would be of no benefit and pt was not interested C/w acyclovir 07/25, gabapentin and amitriptyline for neuropathic pain. Neurology evaled, EMG in 6 weeks if weakness persists. Discussed with neurology again on 07/28 Dr. Holliday and offers no further recs at this time, recommends further involvement with Infectious disease, no further testing on neurology end Continue with the steroids (famotidine for gi protection) IV Acyclovir and doxycycline for now. ID recommending lumbar puncture with meningitis panel, check for syphilis concern for aseptic meningitis in setting of coxsackie virus - results pending but initial LP results look benign awaiting serologies from q fever, tick borne CSF culture no growth to date RPR negative will add cmv, ebv titer, west nile virus igg/igm await results to further discuss with ID Subclinical hypothyroidism: TSH 22.6, fT4 wnl. Started levothyroxine at 25 mcg daily, repeat TFT at 6 weeks, follow-up with PCP. TSH normal 1 year ago likely in setting of acute illness Anemia- hgb stable, 10.7, normocytic, obtain anemia pain in a.m. Other chronic medical conditions: Continue with/resume home meds as and when able. migraine, Patient stable. No headache now. anxiety disorder, not on maintenance medications past tobacco abuse DVT prophylaxis: Lovenox ordered but per MAR pt refusing as she feels she is walking enough and does not need this Full code PCP: Alia Jaquez A total of 45 minutes was spent coordinating, documenting, and providing care for this patient excluding time spent in the performance of separately billed services. This included personally viewing all current laboratories and imaging studies, medication reconciliation, outpatient chart review, and discussion with specialists. Admission and Anticipated Discharge Date Admission Date: July 26, 2023 Supervising Physician Co-Signing Physician Notes Patient was seen and examined at bedside as a follow-up of disseminated zoster related polyradiculopathy/polyradiculitis and rule out tickborne infection. Patient was lying in bed, on room air, skin rash has been improving, her lower extremity weakness has improved significantly, her LUE weakness and numbness is improving, still persisted RUE weakness and numbness. She complained of some difficulty swallowing in the morning, on examination minimal oropharyngeal edema with minimal erythema noted. Patient declined sore throat. On examination, patient on room air, skin rash improving, extremity weakness improving. Rest of the examination as above. Follow tickborne serology test and CSF studies.Continue with acyclovir and doxycycline. Can stop prednisone after 5 to 7 days depending on clinical improvement. I have seen and examined the patient and have discussed the case with the provider above. I agree with the assessment and plan as stated. Subjective Patient was seen and examined in 252. Follow-up disseminated zoster vs aseptic meningitis. Pt feels improved this morning. She has increased ROM to LUE. RUE is still about the same. She continues to have pain to extremities but feel its a bit better today. She denies f/c/s, chest pain, sob, n/v/d. She is ambulating normally, moving bowels and passing urine. Review of Systems Review of Systems: All systems reviewed & are unremarkable except as noted in HPI & below Physical Exam Physical Exam: Gen: WD/WN, NAD, A&O x3 HEENT: Normocephalic, atraumatic, conjunctivae moist, sclerae anicteric, mucous membranes moist. Lung: Clear to Auscultation bilaterally, no wheezes/rales/rhonchi Heart: Regular rate, regular rhythm, no murmurs, rubs, or gallops Abdomen: Soft, NT, ND +BS x 4 Extremities: No edema, extensor maculopapular rash diffusely on upper/lower ext, not vesicular, no secondary bacterial infection MSK: RUE 3/5 LUE 3/5, b/l LE 5/ Skin: Warm, rash as above, negative turgor. Results & Data Results & Data Vital Signs (Past 12 Hours) Vital Signs Temp Pulse Pulse Resp BP Pulse Ox O2 Del Method 07/29/23 11:23 37.3 C 94 H 18 100/65 98 Room Air 07/29/23 07:17 37.2 C 95 H 18 101/64 98 Room Air 07/29/23 07:02 69 07/29/23 03:43 37.2 C 82 18 108/67 99 Room Air 07/29/23 00:26 37.3 C 79 18 109/71 98 Room Air Laboratory Results Short CBC 07/29/23 Range/Units 09:58 WBC 7.73 (4.8-10.8) K/ul Hgb 11.5 L (12.0-16.0) g/dl Hct 35.2 L (37.0-47.0) % Plt Count 208 (130-400) K/uL BMP 07/28/23 07/29/23 14:20 09:58 Sodium 139 Potassium 3.5 Chloride 105 Carbon Dioxide 26 BUN 14 Creatinine 0.98 Glucose 134 H 90 Calcium 8.9 Liver Function 07/29/23 Range/Units 09:58 Total Bilirubin 0.4 (0.2-1.0) mg/dl AST 11 L (13-39) U/L ALT 7 (7-52) U/L Alkaline Phosphatase 39 (34-104) U/L Albumin 3.9 (3.4-5.0) gm/dl Medications Administered Current Inpatient Medications Acetaminophen (Acetaminophen 325 Mg Tab) 650 mg PO QID PRN PRN Reason: pain/fever Stop: 08/24/23 07:31 Last Admin: 07/28/23 07:15 Dose: 650 mg Amitriptyline HCl (Amitriptyline Hcl 25 Mg Tab) 25 mg PO HS [facility] Stop: 08/25/23 20:59 Last Admin: 07/28/23 20:28 Dose: 25 mg Diphenhydramine HCl (Diphenhydramine Capsule 25 Mg Cap) 25 mg PO QID PRN PRN Reason: Itching Stop: 08/24/23 07:28 Doxycycline Hyclate (Doxycycline Hyclate 100 Mg Cap) 100 mg PO BID [facility] Stop: 08/01/23 20:59 Last Admin: 07/29/23 08:30 Dose: 100 mg Enoxaparin Sodium (Enoxaparin Inj 40 Mg/0.4 Ml Syr) 40 mg SQ QAM [facility] Stop: 08/24/23 08:59 Last Admin: 07/29/23 08:28 Dose: Not Given Famotidine (Famotidine 20 Mg Tab) 20 mg PO QAM [facility] Stop: 08/25/23 08:59 Last Admin: 07/29/23 08:30 Dose: 20 mg Ferrous Sulfate (Ferrous Sulfate 325 Mg Tab) 325 mg PO DAILY [facility]; Protocol Stop: 08/24/23 11:44 Last Admin: 07/29/23 08:30 Dose: 325 mg Gabapentin (Gabapentin 100 Mg Cap) 100 mg PO TID [facility] Stop: 08/25/23 20:59 Last Admin: 07/29/23 08:30 Dose: 100 mg Promethazine HCl 6.25 mg/ (Sodium Chloride) 50.25 mls @ 201 mls/hr IV Q6H PRN PRN Reason: Nausea And Vomiting Stop: 08/24/23 07:28 Acyclovir Sodium 660 mg/ (Dextrose) 263.2 mls @ 250 mls/hr IV Q8H [facility]; Protocol Stop: 08/02/23 14:59 Last Infusion: 07/29/23 07:12 Dose: Infused Levothyroxine Sodium (Levothyroxine Sodium 25 Mcg Tablet) 25 mcg PO DAILYBB [facility] Stop: 08/25/23 06:29 Last Admin: 07/29/23 06:05 Dose: 25 mcg Loratadine (Lor[facility]adine 10 Mg Tab) [facility] Stop: 08/25/23 08:59 Last Admin: 07/29/23 08:29 Dose: Not Given Lorazepam (Lorazepam 0.5 Mg Tab) 0.5 mg PO TID PRN PRN Reason: Anxiety Stop: 08/24/23 07:28 Melatonin (Melatonin 3 Mg Tab) 3 mg PO HS PRN PRN Reason: Sleep Stop: 08/24/23 20:47 Last Admin: 07/28/23 22:28 Dose: 3 mg Zolmitriptan: Non- Formulary Patient's Own Med 1 each PO Q7D PRN PRN Reason: Migraine Headache Stop: 08/25/23 16:44 Last Admin: 07/26/23 16:00 Dose: 1 tab Oxycodone HCl (Oxycodone Hcl Ir 5 Mg Tab (Immediate Release)) 5 mg PO Q4H PRN PRN Reason: Pain Stop: 08/08/23 07:28 Last Admin: 07/28/23 07:16 Dose: 5 mg Prednisone (Prednisone 20 Mg Tab) [facility] Stop: 08/25/23 08:59 Last Admin: 07/29/23 08:30 Dose: 20 mg Vitamin B Complex (Vitamin B Complex Tab) 1 tab PO DAILY [facility] Stop: 08/24/23 11:29 Last Admin: 07/29/23 08:31 Dose: 1 tab Zinc Acetate/Diphenhydramine (Diphenhydramine 2%/Zinc 0.1% Cream 28.4gm Tube) 1 appln EXT QID PRN PRN Reason: itchy skin Stop: 08/24/23 07:28 Last Admin: 07/25/23 21:55 Dose: 1 appln
[2023-07-29] MEDS: POLYETHYLENE (MIRALAX) 17 GM PACK PO SCH (20:49)
[2023-07-30 08:47] LABS: Mean Corpuscular Hemoglobin 29.8 pg (25.0-34.0); Mean Corpuscular Hgb Conc 33.3 g/dL (32.0-36.0); Mean Corpuscular Volume 89.4 fL (80.0-100.0); Mean Platelet Volume 9.9 fL (9.4-12.4); Platelet Count 210 K/uL (130-400); RDW Coefficient of Variation 12.7 % (11.5-14.5); RDW Standard Deviation 41.4 fL (36.4-46.3); Red Blood Count 3.69 M/uL (4.20-5.40); White Blood Count 8.47 K/ul (4.8-10.8)
[2023-07-30 09:03] LABS: Basophils # (auto) 0.04 K/uL (0.00-0.20); Basophils % (auto) 0.5 %; Eosinophils # (auto) 0.86 K/uL (0.00-0.50); Eosinophils % (auto) 10.2 %; Immature Granulocytes # (auto) 0.11 K/uL (0.01-0.20); Immature Granulocytes % (auto) 1.3 %; Lymphocytes % (auto) 34.2 %; Monocytes # (auto) 0.57 K/uL (0.11-0.59); Monocytes % (auto) 6.7 %; Neutrophils # (auto) 3.99 K/uL (1.40-6.50); Neutrophils % (auto) 47.1 %
[2023-07-30 09:06] LABS: Calcium 8.6 mg/dl (8.6-10.3); Creatinine Clr Calc Pharmacy 88.1 ml/min; Est GFR (African American) 91.7 ml/min; Est GFR (Non-African American) 79.2 ml/min; Potassium 3.7 mmol/L (3.5-5.1)
--- NOTE | 2023-07-30 10:55 | Hospitalist Progress Note ---
Date of Service July 30, 2023 Assessment & Plan (1) Left-sided weakness: Plan: 33-year-old lady with PMH of migraine, anxiety disorder, past tobacco abuse presented to the ED with complaint of worsening pruritic rash [started from her bottom which later spread to her arms, legs and face] since 1 week ago [employer]. Patient was doing 5K run in the bose prior to onset of illness, no recollection of recent tick bite. Patient was diagnosed with hznz-bknk-jae-mouth disease as an outpatient 07/21 - prescribed steroid ointment, outpatient varicella and measles done given oral lesions, patient was recommended supportive management for presumptive viral illness. Patient presented to the ED 07/22, was discharged on a steroid course. Swallowing problem improved but rash kept getting worse, also started having bilateral leg weakness and bilateral upper extremity weakness. She also complained of bilateral upper extremity numbness. Denied fever or chills, reported eating okay and moving bowels okay, denied diarrheal illness. OP chart reviewed 07/24. 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 No fever. No diarrheal illness. Admitting labs: CBC and BMP WNL, ESR/CRP and CPK negative. TSH 22.6 and FT4 0.83. negative.UA negative for UTI. Admitting imagings: CXR/CTA head and neck/CT head/brain MRI with no acute finding. Echo with EF of 60 to 65%, suggestive of trivial patent foramen ovale. MRI C-spine and T-spine with no acute finding. Follow-up tickborne serology: Either negative or pending so far. Continue frequent neurochecks. Telemetry monitoring. Neuro initially recommended LP; however neurology felt would be of no benefit and pt was not interested Neurology evaluation noted EMG in 6 weeks if weakness persists. Previous Provider discussed with neurology again on 07/28 Dr. Holliday and he recommended further involvement with Infectious disease, no further testing on neurology end Continue with the steroids (famotidine for gi protection) IV Acyclovir and doxycycline for now. ID recommended lumbar puncture with meningitis panel, check for syphilis concern for aseptic meningitis in setting of coxsackie virus Concern for aseptic meningitis LP cell analysis unremarkable Awaiting serologies from q fever, tick borne CSF culture no growth to date RPR negative CMV, [place] n[place] virus igg/igm pending Serum EBV panel (IgG, IgM, nuclear antigen) all positive Will follow up further plans/recs with ID Subclinical hypothyroidism: TSH 22.6, fT4 wnl. Started levothyroxine at 25 mcg daily, Repeat TFT at 6 weeks, follow-up with PCP. Anemia- hgb stable, 10.7, normocytic, obtain anemia pain in a.m. Other chronic medical conditions: Continue with/resume home meds as and when able. migraine, Patient stable. No headache now. anxiety disorder, not on maintenance medications past tobacco abuse DVT prophylaxis: Lovenox ordered but patient had been declining this Full code PCP: Alia Jaquez Updated patient and father at bedside I spent a total of 50 minutes coordinating, documenting and providing care for this patient excluding time spent in performance of separately billed services. This includes review of labs Admission and Anticipated Discharge Date Admission Date: July 26, 2023 Subjective Patient seen and examined. Reports generalized rash is improving. Still reports right upper extremity weakness. Reports weakness in the lower extremities of improved. Reports pain especially in the left upper extremity, going from the elbow to the joints in the hands, improves with gabapentin Reports some pain in the knees with movement. Denies fever, chills. Denies nausea vomiting, abdominal pain. Reports constipation. Denies dysuria, frequency or urgency Denied headache today Physical Exam Constitutional: + well hydrated; no acute distress Eyes: PERRL, conjunctivae normal, anicteric sclerae ENMT: external ear and nose normal, oropharynx normal Respiratory: normal respiratory effort, lungs clear to auscultation Cardiovascular: Rate/Rhythm: regular rate and regular rhythm S1 S2 Gastrointestinal (Abdomen): normal bowel sounds, soft, nontender, no hepatosplenomegaly Musculoskeletal: Power is 4/5 in RUE, 4+/5 in LUE Power is equal in both LE Skin: Maculopapular rash on face, trunk, extremities Neurologic: PERRL, EOMI, accommodation nl, no face palsy, no dysarthria Results & Data Results & Data Vital Signs (Past 12 Hours) Vital Signs Temp Pulse Pulse Resp BP BP Pulse Ox 07/30/23 08:00 07/30/23 07:24 36.8 C 75 18 108/67 100 06/05/24 07:00 77 07/30/23 04:22 37.1 C 84 18 118/69 97 07/30/23 00:41 74 07/29/23 23:14 37 C 75 18 110/72 100 O2 Del Method 07/30/23 08:00 Room Air 07/30/23 07:24 Room Air 07/30/23 07:00 07/30/23 04:22 Room Air 07/30/23 00:41 07/29/23 23:14 Room Air Laboratory Results Abnormal lab results 07/29/23 07/30/23 Range/Units 12:17 08:10 RBC 3.69 L (4.20-5.40) M/uL Hgb 11.0 L (12.0-16.0) g/dl Hct 33.0 L (37.0-47.0) % Eos # (Auto) 0.86 H (0.00-0.50) K/uL EBV Capsid Ag IgG Ab >750.00 H U/mL EBV Capsid Ag IgM Ab 77.70 H U/mL EBV Nuclear Antigen Ab 136.00 H U/mL
[2023-07-30 13:08] LABS: Ehrlichia chaff DNA Bld Negative (Negative)
[2023-07-30 14:06] LABS: EBV Virus Capsid Ag IgG Ab >750.00 U/mL
[2023-07-30] MEDS ORDERED: bisacodyL 10 MG SUPP PR PRN (17:32)
[2023-07-30] MEDS: DOCUSATE SODIUM/SENNA 50/8.6MG TAB PO SCH (17:59)
[2023-07-31] MEDS ORDERED: KETOROLAC TROMETHAMINE 15 MG/ML VIAL IV PRN (05:21)
[2023-07-31] MEDS: KETOROLAC TROMETHAMINE 15 MG/ML VIAL IV ONE (05:43)
[2023-07-31 06:51] LABS: Hematocrit (blood only) 32.5 % (37.0-47.0); Hemoglobin 10.8 g/dl (12.0-16.0); Mean Corpuscular Hemoglobin 29.7 pg (25.0-34.0); Mean Corpuscular Hgb Conc 33.2 g/dL (32.0-36.0); Mean Corpuscular Volume 89.3 fL (80.0-100.0); Mean Platelet Volume 9.4 fL (9.4-12.4); Platelet Count 216 K/uL (130-400); RDW Coefficient of Variation 12.7 % (11.5-14.5); RDW Standard Deviation 41.3 fL (36.4-46.3); Red Blood Count 3.64 M/uL (4.20-5.40); White Blood Count 9.05 K/ul (4.8-10.8)
[2023-07-31 07:13] LABS: BUN Creatinine Ratio 17.9 (10-20); Calcium 8.5 mg/dl (8.6-10.3); Creatinine Clr Calc Pharmacy 87.2 ml/min; Est GFR (African American) 90.6 ml/min; Est GFR (Non-African American) 78.1 ml/min; Potassium 3.7 mmol/L (3.5-5.1)
--- NOTE | 2023-07-31 14:55 | Hospitalist Progress Note ---
Date of Service July 31, 2023 Assessment & Plan (1) Left-sided weakness: Plan: 33-year-old lady with PMH of migraine, anxiety disorder, past tobacco abuse presented to the ED with complaint of worsening pruritic rash [started from her bottom which later spread to her arms, legs and face] since 1 week ago [employer] REPA[employer]. Patient was doing 5K run in the bose prior to onset of illness, no recollection of recent tick bite. Patient was diagnosed with ryfc-hdej-cux-mouth disease as an outpatient 07/21 - prescribed steroid ointment, outpatient varicella and measles done given oral lesions, patient was recommended supportive management for presumptive viral illness. Patient presented to the ED 07/22, was discharged on a steroid course. Swallowing problem improved but rash kept getting worse, also started having bilateral leg weakness and bilateral upper extremity weakness. She also complained of bilateral upper extremity numbness. Denied fever or chills, reported eating okay and moving bowels okay, denied diarrheal illness. OP chart reviewed 07/24. 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 No fever. No diarrheal illness. Admitting labs: CBC and BMP WNL, ESR/CRP and CPK negative. TSH 22.6 and FT4 0.83. negative.UA negative for UTI. Admitting imagings: CXR/CTA head and neck/CT head/brain MRI with no acute finding. Echo with EF of 60 to 65%, suggestive of trivial patent foramen ovale. MRI C-spine and T-spine with no acute finding. Follow-up tickborne serology: Either negative or pending so far. Continue frequent neurochecks. Telemetry monitoring. Neuro initially recommended LP; however neurology felt would be of no benefit and pt was not interested Neurology evaluation noted EMG in 6 weeks if weakness persists. Previous Provider discussed with neurology again on 07/28 Dr. Holliday and he recommended further involvement with Infectious disease, no further testing on neurology end ID had recommended lumbar puncture with meningitis panel, check for syphilis concern for aseptic meningitis in setting of coxsackie virus Concern for aseptic meningitis LP cell analysis unremarkable Awaiting serologies from q fever, tick borne CSF culture no growth to date RPR negative CMV, west nile virus igg/igm pending Serum EBV panel (IgG, IgM, nuclear antigen) all positive I discussed with ID Dr Chester today. She recommends stopping IV acyclovir since CSF HSV is negative and stopping doxycycline since lyme screen is negative Will continue supportive care Continue prednisone for now. Continue pepcid Optimize pain control. Stop oxycodone. Add gabapentin 200mg HS which patient says helps control the pain better at night Continue PT/OT Subclinical hypothyroidism: TSH 22.6, fT4 wnl. Started levothyroxine at 25 mcg daily, Repeat TFT at 6 weeks, follow-up with PCP. Anemia- hgb stable, 10.7, normocytic, obtain anemia pain in a.m. Other chronic medical conditions: Continue with/resume home meds as and when able. migraine, Patient stable. No headache now. anxiety disorder, not on maintenance medications past tobacco abuse DVT prophylaxis: Lovenox ordered but patient had been declining this Full code PCP: Alia Jaquez I spent a total of 50 minutes coordinating, documenting and providing care for this patient excluding time spent in performance of separately billed services. This includes review of labs Admission and Anticipated Discharge Date Admission Date: July 26, 2023 Subjective Patient seen and examined. Reports generalized rash is improving. Reports RUE weakness/weakness and stiffness in hands are improving Reports pain in UE joints/hands especially at night Denies fever, chills. Denies nausea vomiting, abdominal pain. Reports she had small BM but still feels constipated Denies dysuria, frequency or urgency Physical Exam Constitutional: + well hydrated; no acute distress Eyes: PERRL, conjunctivae normal, anicteric sclerae ENMT: external ear and nose normal, oropharynx normal Respiratory: normal respiratory effort, lungs clear to auscultation Cardiovascular: Rate/Rhythm: regular rate and regular rhythm S1 S2 Gastrointestinal (Abdomen): normal bowel sounds, soft, nontender, no hepatosplenomegaly Musculoskeletal: No pedal edema Power is mildly reduced in RUE Neurologic: PERRL, EOMI, accommodation nl, no face palsy, no dysarthria Psychiatric: A+Ox3, euthymic affect Results & Data Results & Data Vital Signs (Past 12 Hours) Vital Signs Temp Pulse Pulse Resp BP Pulse Ox O2 Del Method 07/31/23 11:53 36.7 C 89 18 103/68 99 Room Air 07/31/23 08:00 Room Air 07/31/23 07:37 36.5 C 68 18 105/69 99 Room Air 07/31/23 07:00 67 Laboratory Results Abnormal lab results 07/31/23 Range/Units 06:36 RBC 3.64 L (4.20-5.40) M/uL Hgb 10.8 L (12.0-16.0) g/dl Hct 32.5 L (37.0-47.0) % Calcium 8.5 L (8.6-10.3) mg/dl
[2023-07-31 19:46] LABS: Babesia microti DNA Not Detected (Not Detected); Q Fever IgG, Phase I NEGATIVE; Q Fever Phase I IgM Antibody NEGATIVE; Q Fever Phase II IgG Antibody NEGATIVE; Q Fever Phase II IgM Antibody NEGATIVE; R. typhi IgG Ab NOT DETECTED; R. typhi IgM Ab NOT DETECTED; RMSF IgG Ab NOT DETECTED; RMSF IgM Ab NOT DETECTED
[2023-07-31] MEDS: GABAPENTIN 100 MG CAP PO SCH (21:21)
[2023-08-01 07:16] LABS: Hematocrit (blood only) 32.9 % (37.0-47.0); Mean Corpuscular Hemoglobin 30.1 pg (25.0-34.0); Mean Corpuscular Hgb Conc 33.4 g/dL (32.0-36.0); Mean Corpuscular Volume 89.9 fL (80.0-100.0); Platelet Count 248 K/uL (130-400); RDW Coefficient of Variation 12.8 % (11.5-14.5); RDW Standard Deviation 41.5 fL (36.4-46.3); Red Blood Count 3.66 M/uL (4.20-5.40); White Blood Count 9.88 K/ul (4.8-10.8)
[2023-08-01 07:36] LABS: BUN Creatinine Ratio 20.7 (10-20); Calcium 9.1 mg/dl (8.6-10.3); Creatinine Clr Calc Pharmacy 95.2 ml/min; Est GFR (African American) 100.7 ml/min; Est GFR (Non-African American) 86.9 ml/min; Potassium 3.8 mmol/L (3.5-5.1)
--- NOTE | 2023-08-01 12:24 | Discharge Summary ---
Date of Service August 01, 2023 Admission HPI Per Admitting Provider History obtained from patient, family, and records. Medical history significant for migraine, anxiety disorder, past tobacco abuse. Patient noted pruritic rash starting from her bottom which later spread to her arms, legs face since last week. Patient was doing a 5K run in the [place] prior to onset of illness. No recollection of recent tick bites. Painful swallowing and bumps in her mouth. Patient seen at PCP's office 3 days ago. Impression was ieig-qcee-ffg-mouth disease. Outpatient varicella and measles done given oral lesions. Supportive management recommended for presumptive viral illness. Patient presented to ER the following day due to worsening symptoms. Steroid course prescribed on discharge. Swallowing problem improved but rash getting worse as per patient. Some gait imbalance noted yesterday. Both legs somewhat weak, left greater than right as per patient. Patient woke up this morning with left arm/leg pain and numbness going to her shoulder and chest. Denies unusual neck or back pain. Mild headache symptoms. No fever, no chills. Patient brought to ER for evaluation. Ceftriaxone and Decadron administered at the ER. 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 Admission Exam Per Admitting Provider GENERAL: uncomfortable, anxious, no respiratory distress SKIN: Normal color, nontender maculopapular rashes affecting the face, abdomen, both upper and lower extremities, warm HEENT: [place] palpebral conjunctivae, no ptosis, dry buccal mucosa, raised lesions on buccal mucosa, no obvious ulcerations NECK : Supple, no tenderness CHEST : CTA, no tenderness HEART : RRR, no obvious murmurs ABDOMEN: Some distention, nontender EXTREMITIES : No LE swelling/tenderness, no other conspicuous deformities noted NEUROLOGIC : Coherent, no facial asymmetry, MMTS RUE 4/5, LUE 3/5, BLE 3/5 (R>L), left pronator drift, gait and stance not assessed Principal Diagnosis Rash Left sided weakness Subclinical hypothyroidism Neuropathy Discharge Exam Constitutional + well hydrated; no acute distress Eyes PERRL, conjunctivae normal, anicteric sclerae ENMT external ear and nose normal, oropharynx normal Respiratory normal respiratory effort, lungs clear to auscultation Cardiovascular Rate/Rhythm: regular rate and regular rhythm S1 S2 Gastrointestinal (Abdomen) normal bowel sounds, soft, nontender, no hepatosplenomegaly Musculoskeletal Power in RUE improving 4+/5 today Stiffness in hand IP joints in both hands Skin Maculopapular rash generalized especially in extremities. Improving Neurologic PERRL, EOMI, accommodation nl, no face palsy, no dysarthria Psychiatric A+Ox3, euthymic affect Discharge Data Allergies Allergy/AdvReac Type Severity Reaction Status Date / Time codeine AdvReac Intermediate vomits Verified 09/20/22 22:17 Consultations 07/25/23 05:43 ED Decision to Admit Stat 07/25/23 07:27 Consult Neurology Routine 07/25/23 07:29 Consult Dermatology Routine 07/25/23 13:21 Consult Infectious Diseases Routine Ordered Studies 07/25/23 03:40 CT head/brain wo con Stat CTA head w con [CT angio head w con] Stat CTA neck with con [CT angio neck with con] Stat 07/25/23 07:27 MR brain wo/w con Urgent 07/26/23 00:00 MR cervical spine wo/w con Routine MR thoracic spine wo/w con Routine 07/28/23 12:08 IR lumbar puncture diagnostic Routine Hospital Course (1) Left-sided weakness: 33-year-old lady with PMH of migraine, anxiety disorder, past tobacco abuse presented to the ED with complaint of worsening pruritic rash [started from her bottom which later spread to her arms, legs and face] since 1 week ago [employer]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 Patient was doing 5K run in the [place] prior to onset of illness, no recollection of recent tick bite. Patient was diagnosed with mevg-zzqa-ger-mouth disease as an outpatient 07/21 - prescribed steroid ointment, outpatient varicella and measles done given oral lesions, patient was recommended supportive management for presumptive viral illness. Patient presented to the ED 07/22, was discharged on a steroid course. Swallowing problem improved but rash kept getting worse, also started having bilateral leg weakness and bilateral upper extremity weakness. She also complained of bilateral upper extremity numbness. Denied fever or chills, reported eating okay and moving bowels okay, denied diarrheal illness. OP chart reviewed 07/24. 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 No fever. No diarrheal illness. Admitting labs: CBC and BMP WNL, ESR/CRP and CPK negative. TSH 22.6 and FT4 0.83. negative.UA negative for UTI. Admitting imagings: CXR/CTA head and neck/CT head/brain MRI with no acute finding. Echo with EF of 60 to 65%, suggestive of trivial patent foramen ovale. MRI C-spine and T-spine with no acute finding. Follow-up tickborne serology: Either negative or pending so far. Continue frequent neurochecks. Telemetry monitoring. Neuro initially recommended LP; however neurology felt would be of no benefit and pt was not interested Neurology evaluated EMG in 6 weeks if weakness persists. Previous Provider discussed with neurology again on 07/28 Dr. Holliday and he recommended further involvement with Infectious disease, no further testing on neurology end ID had recommended lumbar puncture with meningitis panel, check for syphilis concern for aseptic meningitis in setting of coxsackie virus Concern for possible aseptic meningitis LP cell analysis unremarkable Awaiting serologies from q fever Lyme screen negative CSF culture no growth to date CSF HSV negative RPR negative CMV, [place] nile virus igg/igm pending Serum EBV panel (IgG, IgM, nuclear antigen) all positive PCP to follow up outstanding result Was initially on IV acyclovir and doxycycline ID recommended discontinuing IV acyclovir and doxycycline once CSF HSV was negative and lyme screen was negative Managed with supportive therapies Treated with prednisone 20mg daily. Reduced to 10mg daily for 5 days on discharge Pepcid while on prednisone Gabapentin 100mg AM, PM and 200mg HS as this helps with her pain which seem neuropathic in nature. Can stop once resolves Subclinical hypothyroidism: TSH 22.6, fT4 wnl. Started levothyroxine at 25 mcg daily, PCP to repeat TFT at 4-6 weeks Total Time Total Time Spent Total Time Spent (In Minutes): 35 Total Time Includes: Examination of the Patient, Discharge Planning and Medication Reconciliation Discharge Plan Discharge Items Patient Disposition: Home - Self-Care Reason For Visit: L sided weakness Discharge Diagnosis: Rash Left sided weakness Subclinical hypothyroidism Neuropathy Condition on Discharge: Good Activity: Resume your previous activity Non-emergency contact: Primary Care Provider Call non-emergency contact if: you have any medication questions and your symptoms worsen Follow-up/Referrals: Alia Jaquez CRNP [Primary Care Provider] - (Date & Time 08/08/2023 11:00 AM Provider Alia Jaquez CRNP Department [facility] ) Diet: Regular Addtl Attending Provider Instructions: Mrs Morgan You came to the hospital for generalized rash, localized weakness of extremities, pain and stiffness in upper extremities. You were extensively evaluated Your symptoms are improving You are being discharged on Prednisone 10mg daily for next 5 days Take Pepcid while on Prednisone You were started on levothyroxine for subclinical hypothyroidism. Your Primary Doctor can recheck Thyroid function test in 4-6 weeks. You are being discharged on gabapentin for the nerve pain If your extremity weakness persists, you can follow up with Neurology for EMG and further evaluation. It was a pleasure taking care of you. Pending Studies at Discharge: Yes (CSF send out test, [place] virus, CMV) Stand-Alone Forms: My [facility] [employer], Smoking Cessation Medications and DC Order Prescriptions: New loratadine [Wal-itin] 10 mg Tablet 10 mg PO QAM Qty: 7 0RF gabapentin 100 mg Capsule See Rx Instructions .ROUTE .COMPLEX Qty: 30 0RF Rx Instructions: Take 100mg in morning and afternoon and 200mg at bedtime levothyroxine [Synthroid] 25 mcg Tablet 25 mcg PO DAILYBB Qty: 30 0RF famotidine 20 mg Tablet 20 mg PO QAM 7 Days Qty: 7 0RF prednisone 10 mg tablet 10 mg PO DAILY Qty: 5 0RF Continued ondansetron HCl 4 mg Tablet 4 mg PO Q6H PRN (Reason: Nausea) zolmitriptan 5 mg tablet,disintegrating 5 mg translingual DIRECTED PRN (Reason: Migraine Headache) vitamin B complex Tablet 1 tab PO DAILY Vitron-C 65 mg iron- 125 mg Tablet,Delayed Release (Dr/Ec) 1 tab PO DAILY Discharge Orders: Discharge Order (Routine); Ordered 08/01/23 Ordered By: Serena Gaines Admission Data Admit Date/Time: 07/26/23 14:03 Attending Provider: Serena Gaines I. Admit Provider: Rafael Workman Primary Care Provider: Alia Jaquez Other Providers: Rafael Workman; Bridgette Pratt; Chandan Roche; Bridgette Mccollum; Gaurav Mcnulty; Gerson Fowler; Larry Dumont; Jose Christensen; Nia Peck; Thomas Farias; Sylvester Morales; Ryne Partida; Haja Lopez; Emily Begum; Amanda Hummel; Jose Holliday; Jonas Holland; Feliz Thomas; Abiola Huertas; Papi Bourne I.; Mitchel Law II; Samia Chester; Emanuel Quiles; Pablito Hernandez; Maikol Maya; Theo Harp; Compa Turner Other Interventions: Discharge Summary Assessment (RN) Last Done: 08/01/23 12:26
[2023-08-03 00:17] LABS: Brucella AB IgG 0.27
== END 2023-08-01 14:03 | disposition home or self-care (01) | DRG 866 ==
LOC: EDINP 03:13 → ED 03:13 → 2W 14:35 → SUATTDRO 07-26 14:03
DX: E02 Subclinical iodine-deficiency hypothyroidism; M54.10 Radiculopathy, site unspecified; B02.23 Postherpetic polyneuropathy; B02.7 Disseminated zoster; Z87.891 Personal history of nicotine dependence; F41.9 Anxiety disorder, unspecified; Z88.5 Allergy status to narcotic agent